=== PATIENT | male | born 1970 | race Caucasian/White ===

== ENCOUNTER 2020-09-16 09:36 | Day surgery (SDC) | payer OTHER, SELFPAY ==
[2020-09-10 11:08] VITALS: BMI 26.2
--- NOTE | 2020-09-13 13:04 | HO.ANESPROP2 ---
Documented by User: Veronika Leblanc 09/13/20 13:04 HPI - Anesthesia Eval Consult details Narrative: 49yo M for Upper Endoscopy and Colonoscopy [facility] Past Medical History Medical History Bipolar 1 disorder Hx of opioid abuse Surgical History Surgical History History of ankle surgery Social History Social History Use of substances other than those prescribed or required for medical reasons: Yes Substance Use Type Other:: on suboxone at present time Advance Directives Information Provided: No Meds Allergies Allergy/AdvReac Type Severity Reaction Status Date / Time No Known Allergies Allergy Verified 09/10/20 11:12 [No Known Allergies*] Home Medications Medication Instructions Recorded Confirmed Type alprazolam [Xanax] 0.5 mg PO TID 09/10/20 09/10/20 History buprenorphine-naloxone [Suboxone] 2 film BUCCAL DAILY 09/10/20 09/10/20 History dextroamphetamine-amphetamine 10 mg PO DAILY 09/10/20 09/10/20 History [Adderall] diclofenac sodium 75 mg PO BID PRN 09/10/20 09/10/20 History dicyclomine 20 mg PO TID 09/10/20 09/10/20 History docusate sodium 100 mg PO BID 09/10/20 09/10/20 History gabapentin 600 mg PO TID 09/10/20 09/10/20 History sildenafil [Viagra] 50 mg PO DAILY 09/10/20 09/10/20 History Exam Exam Date and Time: September 13, 2020 1304 Height,Weight and Vital Signs: Height 6 ft Weight 87.543 kg Pertinent Lab Results Pertinent Lab Results: Laboratory Tests 04/12/20 15:40 WBC 10.5 Hgb 13.1 L Hct 37.6 L Plt Count 214 Assessment and Plan Assessment Anesthesia Assessment: Chart Reviewed Documented by User: Laura Saleh 09/16/20 11:15 PMFSH Past Medical History Medical History Bipolar 1 disorder Hx of opioid abuse Surgical History Surgical History History of ankle surgery Social History Social History Use of substances other than those prescribed or required for medical reasons: Yes Substance Use Type Other:: on suboxone at present time Advance Directives Information Provided: No Meds Allergies Allergy/AdvReac Type Severity Reaction Status Date / Time No Known Allergies Allergy Verified 09/10/20 11:12 [No Known Allergies*] Home Medications Medication Instructions Recorded Confirmed Type alprazolam [Xanax] 0.5 mg PO TID 09/10/20 09/10/20 History buprenorphine-naloxone [Suboxone] 2 film BUCCAL DAILY 09/10/20 09/10/20 History dextroamphetamine-amphetamine 10 mg PO DAILY 09/10/20 09/10/20 History [Adderall] diclofenac sodium 75 mg PO BID PRN 09/10/20 09/10/20 History dicyclomine 20 mg PO TID 09/10/20 09/10/20 History docusate sodium 100 mg PO BID 09/10/20 09/10/20 History gabapentin 600 mg PO TID 09/10/20 09/10/20 History sildenafil [Viagra] 50 mg PO DAILY 09/10/20 09/10/20 History Exam Airway Mallampati Class: II TM Dist: >3cm Neck ROM: Full
[2020-09-16 10:17] VITALS: BP 129/72; PULSE 67; RESP 18; TEMP 36.7; O2SAT 96
[2020-09-16] MEDS: Lactated Ringers 1,000 ML 100 ML IVCONT (10:31)
--- NOTE | 2020-09-16 11:10 | MHC.SHP ---
Pre-Procedural Eval Section B Chief Complaint: SCREENING Details of Present Illness: bloating and gas, remote hx of cirrhosis per patient, Relevant Social History: None Present Medications: see Short Stay Collaborative assessment Medical History: Significant History (ADHD, depression, possible cirrhosis, ex alcohol absue) History of Previous Operations: No relevant previous surgery Allergies: Allergies Allergy/AdvReac Type Severity Reaction Status Date / Time No Known Allergies Allergy Verified 09/10/20 11:12 [No Known Allergies*] Review of Systems Sugical H&P ROS: Negative: Constitution, Cardiovascular, Respiratory, Neurological, Psychiatric, Hem-Onc, Allergic/Immunologic, Gastrointestinal, Genitourinary, Musculoskeletal, Integumentary, Endocrine and Eyes/Ears/Nose/Throat Exam Surgical H&P Exam: Normal: HEENT, Normal: Heart, Normal: Lungs, Normal: Extremities, Normal: Abdomen, Normal: Skin and Normal: Neurological Plan Diagnosis/Plan: Unchanged Patient has been examined and remains a candidate for the planned procedure
--- NOTE | 2020-09-16 11:12 | PM.OP ---
Brief Operative Note Date of procedure: 09/16/20 Pre-op diagnosis: bloating, hx of cirrhosis, colon screen Post-op diagnosis: same Surgeon: Lory Rodríguez MD Anesthesia: MAC Estimated blood loss (mL): 0 Condition: stable Disposition: PACU
--- NOTE | 2020-09-16 11:13 | P.OP_ITS ---
Operative Note Operative Note Narrative: Operative Information Procedure Description: EGD, Colonoscopy FLEXIBLE TRANSORAL UPPER GASTROINTESTINAL ENDOSCOPY AND COLONOSCOPY PROCEDURE NOTE UPPER ENDOSCOPY Consent: Indications for the procedure and potential complications of bleeding, perforation, reaction to medications and missed diagnosis were discussed with the patient and informed consent was obtained. Instrument: Olympus GIF H 190 J mid size upper endoscope Monitoring: Vital signs and clinical assessment, continuous EKG monitoring, Pulse oximetry, Carbon Dioxide monitoring and blood pressure monitoring were done throughout the procedure. Procedure: The patient was placed in the left lateral decubitis position and pre-procedure medications were administered and a bite block was placed. The endoscope was inserted into the mouth and advanced under direct vision to the third part of duodenum. A careful inspection was made as the upper endoscope was withdrawn including a retroflexed examination of the proximal stomach; Findings and interventions are described below. Findings: Larynx:normal Esophagus: GE junction at 42 cm, diaphragm hiatus at 42 cm, normal mucosa Stomach: Mild streaky gastric erythema. Biopsies were obtained. Grade 2 flap valve on retroflexed examination of the cardia. No gastric peristalsis seen Duodenum: Normal bulb and descending duodenum, bx taken, no peristalsis noted Intervention: Biopsies as noted above COLONOSCOPY Instrument: Olympus variable stiffness pediatric scope 190L Colonoscopy Monitoring: Vital signs and clinical assessment, continuous EKG monitoring, Pulse oximetry, Carbon Dioxide monitoring and blood pressure monitoring were done throughout the procedure. Colon withdrawal time was 9 minutes. Procedure: The patient was placed in the left lateral decubitis position and pre-procedure medications were administered. After a digital rectal examination of the ano-rectum, the video colonoscope was inserted into the rectum and advanced through the colon to the cecum/TI. The colonoscope was slowly withdrawn in a retrograde panoramic fashion and the colon mucosa was carefully examined including a retroflexed view of the rectum. Findings and interventions are described below. Procedure Difficulty: Findings: RECTAL exam--normal, no enlarged prostate felt Terminal Ileum-normal Cecum:normal Ascending Colon: normal Transverse Colon -normal Descending Colon:normal Sigmoid Colon: normal, 8-9 mm sessile polyp removed with cold snare Rectum: Retroflexion with small internal hemorrhoids, grade I Anorectum - normal Colon preparation: [place] Bowel Preparation Scale Right colon; 3 Transverse colon: 3 Left colon; 2 (0 = Unprepared colon segment with mucosa not seen due to solid stool that cannot be cleared. 1 = Portion of mucosa of the colon segment seen, but other areas of the colon segment not well seen due to staining, residual stool and/or opaque liquid. 2 = Minor amount of residual staining, small fragments of stool and/or opaque liquid, but mucosa of colon segment seen well. 3 = Entire mucosa of colon segment seen well with no residual staining, small fragments of stool or opaque liquid) Impression and Post Procedure Diagnosis: Endoscopy Findings: gastritis possible gastroparesis and small bowel dysmotility Colonoscopy Findings: internal hemorrhoids polyp Plan: Await Pathology results Repeat Colonoscopy in 7-10 years pending path or earlier if clinically indicated High fiber diet leaflet avoid straining at stool, epsom salts and sitz bath, anusol supps or cream GASTRIC EMPTYING STUDY as outpatient, could have gastroparesis and dysmotility 2/2 suboxone Above findings were reviewed with the patient and relevant handouts were provided if indicated.
[2020-09-16 12:04] VITALS: BP 90/56; PULSE 61; RESP 15; TEMP 36.5; O2SAT 98
[2020-09-16 12:18] VITALS: BP 103/70; PULSE 79; RESP 18; O2SAT 96
[2020-09-16 12:32] VITALS: BP 104/66; PULSE 59; RESP 18; TEMP 36.1; O2SAT 95
--- NOTE | 2020-09-16 12:52 | HO.POSTANES ---
Post Anesthesia Evaluation Post Anesthesia Evaluation Vital Signs: Vital Signs Temp Pulse Resp BP Pulse Ox 09/16/20 12:32 96.9 F 59 18 104/66 95 09/16/20 12:18 79 18 103/70 96 09/16/20 12:04 97.7 F 61 15 90/56 L 98 09/16/20 10:17 98.1 F 67 18 129/72 96 Anesthesia: Monitored Mental Status: Awake Pain Control: Satisfactory Nausea/Vomiting: None Hydration: Adequate Anesthesia-Related Issues: No Anes. Related Issues
== END 2020-09-16 23:59 | disposition home or self-care (01) ==
PROVIDERS: Visit Provider Internal Medicine Gastroenterology
PROC: (CPT 45385; principal; 2020-09-16 10:30)
DX: Z12.11 Encounter for screening for malignant neoplasm of colon (principal); D12.5 Benign neoplasm of sigmoid colon; K64.0 First degree hemorrhoids; K29.50 Unspecified chronic gastritis without bleeding; K59.9 Functional intestinal disorder, unspecified; K44.9 Diaphragmatic hernia without obstruction or gangrene; F31.9 Bipolar disorder, unspecified; F90.9 Attention-deficit hyperactivity disorder, unspecified type; R14.0 Abdominal distension (gaseous); F11.10 Opioid abuse, uncomplicated; Z79.899 Other long term (current) drug therapy
CPT/HCPCS: 45385; 43239; 88305; 88342; J2250

== ENCOUNTER → 2020-12-16 09:05 | Outpatient (BNVA) | payer OTHER, SELFPAY | PROVIDERS: Visit Provider Internal Medicine Gastroenterology | DX: Z13.89 Encounter for screening for other disorder (principal) | CPT/HCPCS: 99212 ==

== ENCOUNTER 2021-03-17 07:02 | Emergency (ER) | payer OTHER, SELFPAY ==
[2021-03-17] VITALS (8 sets, daily range): BP systolic 0–172; BP diastolic 0–83; PULSE 0–114; RESP 0–20; TEMP -17.7–37.5; O2SAT 96; BMI 25.0
--- NOTE | 2021-03-17 07:14 | ED_ITS ---
HPI - Psych General Chief Complaint: Psychiatric Symptoms Stated Complaint: Crisis Time Seen by Provider: 03/17/21 07:14 Source: patient, EMS and police Mode of arrival: EMS Limitations: no limitations History of Present Illness HPI Narrative: This is a 50-year-old male came in by ambulance and police custody and Section 12 for evaluation of suicidal gesturing. This is a 50-year-old male who is cocaine/fentanyl abuser, patient stated that he is in fear of withdrawal from cocaine and fentanyl he did not using for the last 2 days, patient was speaking with [facility] and who were concerned and sent the police home found a note has some suicidal ideation ?I do not want to be on this planet any more ?. Patient otherwise decline headache, chest pain, abdominal pain. Related Data Home Medications Medication Instructions Recorded Confirmed alprazolam [Xanax] 0.5 mg PO TID 09/10/20 09/10/20 buprenorphine-naloxone [Suboxone] 2 film BUCCAL DAILY 09/10/20 09/10/20 dextroamphetamine-amphetamine 10 mg PO DAILY 09/10/20 09/10/20 [Adderall] diclofenac sodium 75 mg PO BID PRN 09/10/20 09/10/20 dicyclomine 20 mg PO TID 09/10/20 09/10/20 docusate sodium 100 mg PO BID 09/10/20 09/10/20 gabapentin 600 mg PO TID 09/10/20 09/10/20 sildenafil [Viagra] 50 mg PO DAILY 09/10/20 09/10/20 Allergies Allergy/AdvReac Type Severity Reaction Status Date / Time No Known Allergies Allergy Verified 12/16/20 09:06 [No Known Allergies*] Review of Systems Review of Systems: All other systems are reviewed and are negative Constitutional: Reports as per HPI and Reports no additional constitutional complaints Eyes: Reports as per HPI and Reports no additional eye complaints Reports system reviewed and no additional complaints, except as documented Cardiovascular: Reports as per HPI and Reports no additional cardiovascular complaints Respiratory: Reports as per HPI and Reports no additional respiratory complaints Gastrointestinal: Reports as per HPI and Reports no additional gastrointestinal complaints Genitourinary: Reports no additional female genitourinary complaints Musculoskeletal: Reports no additional musculoskeletal complaints Skin/Breast: Reports system reviewed and no additional complaints, except as docu Psychiatric: Reports no additional psychiatric complaints Endocrine: Reports no additional endocrine complaints Hematologic/Lymphatic: Reports no additional hematologic/lymphatic complaints Allergic/Immunologic: Reports no additional allergic/immunologic complaints Reports system reviewed and no additional complaints, except as documented and Reports Abnormal speech present [facility] Past Medical History Medical History Bipolar 1 disorder Hx of opioid abuse Surgical History History of ankle surgery History of colonoscopy History of esophagogastroduodenoscopy (EGD) Social History Social History Household Members: Family Alcohol intake: current Alcohol intake frequency: 3 or more drinks per day Tobacco Type: Cigarette Cigarettes Per Day: 10 Physical Exam Vital Signs: Vital Signs: Last Vital Signs Temp 0 F L 03/17/21 07:09 Pulse 0 L 03/17/21 07:09 Resp 0 L 03/17/21 07:09 BP 0/0 L 03/17/21 07:09 Body Mass Index 25.0 Vital signs have been reviewed as appeared to be correct. Blood pressure normal. Heart rate normal. Respiration rate normal. Temperature normal. Oxygen saturation normal. Appearance: Alert. Oriented X3. No acute distress. Head: Normal external exam. Normocephalic. Atraumatic. No Flynn signs noted. No raccoon eyes noted Eyes: PERRLA. EOMI. Conjunctiva and sclera normal. Eyelids normal. ENT: TM's Normal. Pharynx normal. Uvula midline. Moist mucous membranes. No trismus noted. No drooling noted. No muffled voice noted. Neck: Normal inspection. Neck supple. FROM. No adenopathy. Thyroid Normal. No meningeal signs. No neck mass noted. CVS: Normal heart rate and rhythm. Heart sound normal. No murmurs noted. Pulses normal throughout. Respiratory: No respiratory distress. Painless inspiration. Breath sounds normal. No wheezes/rales/rhonchi noted. Chest nontender. No accessory muscle usage noted or decreased air movement noted. Abdomen: Soft and nontender. Bowel sounds normal in all 4 quadrants. No distention noted. No organomegaly noted. No visible injury noted. Back: No CVA tenderness. Full range of motion noted. Skin: Skin warm and dry. Normal skin color. Normal skin turgor. No rashes/lesions/lacerations noted. Extremities: No lower extremity edema. Extremities exhibit normal range of motion. Extremities nontender. Neuro: Oriented X 3. No motor deficit. No sensory deficit. Reflexes normal. Patient Appearance: Appropriate Patient Orientation: Person, Place, Time and Situation Level of Consciousness: Awake, Appropriate and Alert Patient Behavior: Talkative, Cooperative. Mood Description: Depressed. Affect Description: Flat. Patient Cognition Impaired: No Ability to Follow Directions: Good Speech Pattern: None interrupted Memory Description: Intact Hallucinations: Not present. Delusions: Not Present Thought Process: Logical. Thought Content: Unremarkable Depressive Symptoms: Increased anxiety. Judgement: Poor. Course Reevaluation(s) Reevaluation #1: Physician observation started at 7:10 am . Patient placed in physician observation because the patient needed more time for BHN and evaluation and placement placement patient's vital sign were stable, patient is alert and oriented , neuro exam unchanged, unremarkable rest of physical exam. Time: 07:19 Discharge Plan Discharge Clinical Impression: Depression, Bipolar disorder, Active substance abuse Prescriptions: No Action gabapentin 600 mg Tablet 600 mg PO TID RF: 0 sildenafil [Viagra] 50 mg Tablet 50 mg PO DAILY RF: 0 dextroamphetamine-amphetamine [Adderall] 10 mg Tablet 10 mg PO DAILY RF: 0 alprazolam [Xanax] 0.5 mg Tablet 0.5 mg PO TID RF: 0 dicyclomine 20 mg Tablet 20 mg PO TID RF: 0 docusate sodium 100 mg Capsule 100 mg PO BID RF: 0 diclofenac sodium 75 mg Tablet,Delayed Release (Dr/Ec) 75 mg PO BID PRN (Reason: Pain) RF: 0 buprenorphine-naloxone [Suboxone] 8-2 mg Film 2 film BUCCAL DAILY RF: 0
[2021-03-17 09:29] LABS: Amphetamine Screen Urine Not Detected (Not Detect); Barbiturates, Urine Not Detected (Not Detect); Benzodiazepines Screen Urine Not Detected (Not Detect); Cannabinoid Screen Urine Not Detected (Not Detect); Cocaine Screen Urine POSITIVE (Not Detect); Opiate Screen Urine Not Detected (Not Detect); Phencyclidine Screen Urine Not Detected (Not Detect)
[2021-03-17] MEDS: LORazepam 1 MG TABLET 2 MG PO ×2 (09:49→17:43)
--- NOTE | 2021-03-17 09:51 | PC.NURSE ---
Pt awake, alert, oriented x3. Affect anxious, pt transferred from main. Pt oriented to unit and to crisis process. Pt reports he last used heroin prior to arrival, denies any regular use of etoh.
--- NOTE | 2021-03-17 10:34 | PC.NURSE ---
Pt medicated as ordered, BHN in to evaluate.
--- NOTE | 2021-03-17 11:33 | PC.NURSE ---
BHN in to evaluate pt
[2021-03-17 15:08] LABS: MANUAL DIFF FLAG NO
[2021-03-17 15:09] LABS: Basophils Percent Auto 0.5 % (0-2); Eosinophils Absolute Auto 0.2 X10*3/uL (0.0-0.4); Eosinophils Percent Auto 2.9 % (0-4); Hematocrit 37.4 % (42-52); Hemoglobin 12.5 g/dl (14.0-18.0); Imm Gran Abs Auto 0.03 X10*3/uL (0.00-0.03); Imm Gran Pct Auto 0.5 % (0.0-0.4); Lymphocytes Absolute Auto 1.5 X10*3/uL (1.2-4.9); Lymphocytes Percent Auto 23.8 % (20-40); Mean Corpuscular HGB Conc 33.4 g/dl (31.0-36.0); Mean Corpuscular Hemoglobin 31.3 pg (27.0-33.0); Mean Corpuscular Volume 93.7 fL (80-98); Mean Platelet Volume 9.7 fL (9.4-12.4); Monocytes Absolute Auto 0.6 X10*3/uL (0.1-1.2); Neutrophils Absolute Auto 4.1 X10*3/uL (2.0-8.3); Neutrophils Percent Auto 63.3 % (45-73); Platelet Count 204 X10*3/uL (160-400); Red Blood Count 3.99 X10*6/uL (4.60-5.80); White Blood Count 6.5 X10*3/uL (4.8-10.8)
[2021-03-17 15:16] LABS: COVID-19 Test Negative (Negative)
[2021-03-17 15:33] LABS: Ethanol < 10 mg/dL
[2021-03-17 15:36] LABS: Alanine Aminotransferase 12 U/L (0-40); Albumin Level 4.3 g/dL (3.5-5.0); Alkaline Phosphatase 63 U/L (39-117); Anion Gap 12 (12-20); Aspartate Amino Transferase 18 U/L (5-37); Bilirubin Total 0.9 mg/dL (0.0-1.0); Blood Urea Nitrogen 5 mg/dL (9-16); Carbon Dioxide 28 mmol/L (22-29); Chloride 105 mmol/L (96-108); Creatinine Clr Calc Pharmacy 105.6; Estimated Glomerular Filt Rate > 60; Glucose Random 101 mg/dL (60-115); Potassium 3.6 mmol/L (3.3-5.1); Sodium 141 mmol/L (135-145); Total Protein 6.8 g/dL (6.5-8.0)
--- NOTE | 2021-03-17 17:38 | PC.NURSE ---
N June aware of COWS
[2021-03-17] MEDS: cloNIDine HCL 0.2 MG TABLET PO (17:43)
--- NOTE | 2021-03-17 20:18 | PC.NURSE ---
Patient in bed appears sleeping, no distress observed/reported, will continue to monitor.
[2021-03-17] MEDS: Gabapentin 600 MG TABLET PO (21:04)
[2021-03-18] MEDS: ALPRAZolam 0.5 MG TABLET 2 MG PO ×2 (00:37→13:13)
[2021-03-18 00:38] VITALS: BP 138/74; PULSE 71; RESP 18; TEMP 36.7; O2SAT 98
[2021-03-18 05:08] VITALS: BP 132/76; PULSE 59; RESP 96; TEMP 36.8; O2SAT 96
[2021-03-18 05:15] VITALS: BP 130/76; PULSE 59
[2021-03-18] MEDS: cloNIDine HCL 0.1 MG TABLET PO (05:15)
--- NOTE | 2021-03-18 05:17 | PC.NURSE ---
Patient was diaphoretic, COW assessed scored 6, provider notified/ordered Clonidine 0.1 mg/administered as ordered, patient compliant will continue to monitor.
[2021-03-18] MEDS: Gabapentin 600 MG TABLET PO ×2 (08:21→15:10)
[2021-03-18 08:24] VITALS: BP 118/77; PULSE 70; RESP 16; TEMP 36.4; O2SAT 97
== END 2021-03-18 15:21 ==
PROVIDERS: Emergency Provider Emergency Medicine
DX: R45.851 Suicidal ideations (principal); F32.9 Major depressive disorder, single episode, unspecified; F14.10 Cocaine abuse, uncomplicated; F11.10 Opioid abuse, uncomplicated; F17.200 Nicotine dependence, unspecified, uncomplicated; Z20.822 Contact with and (suspected) exposure to COVID-19; F31.9 Bipolar disorder, unspecified; Z79.899 Other long term (current) drug therapy
CPT/HCPCS: 36415; 80053; 80307; 80320; 85025; 87635; 99285

== ENCOUNTER → 2021-04-18 11:46 | Outpatient (BNVA) | payer OTHER, SELFPAY | PROVIDERS: Visit Provider Internal Medicine Gastroenterology | DX: K59.01 Slow transit constipation (principal) | CPT/HCPCS: 99212 ==

== ENCOUNTER 2021-06-19 12:29 | Outpatient (REF) | payer OTHER, SELFPAY ==
--- NOTE | ~2021-06-19 | XR_ITS ---
EXAMINATION: XR LUMBAR SPINE XR PELVIS CLINICAL INFORMATION: Back pain. COMPARISON: None TECHNIQUE: Lumbar spine is imaged in 3 views. The pelvis is imaged in single AP view. FINDINGS: There are 5 [id number] lumbar vertebrae with normal vertebral height and normal lumbar lordosis. There may be a borderline spina bifida occulta at S1. There is no vertebral compression, spondylolisthesis, disc narrowing, or destructive process. No endplate sclerosis or erosive change. There are mild facet degenerative changes lumbosacral junction. The bony pelvis appears intact with no destructive process. The SI joints show no diastasis, ankylosis, or erosive change. No subchondral sclerosis. Pubis unremarkable. There is mild narrowing bilateral superior hip joints. XR/XR pelvis 1-2V IMPRESSION: 1. No lumbar vertebral compression, spondylolisthesis, or disc narrowing. 2. Mild facet degeneration lumbosacral junction. Probable spina bifida occulta S1. 3. Pelvis and SI joints are unremarkable. 4. Mild narrowing superior hip joints.
--- NOTE | ~2021-06-19 | XR_ITS ---
EXAMINATION: XR LUMBAR SPINE XR PELVIS CLINICAL INFORMATION: Back pain. COMPARISON: None TECHNIQUE: Lumbar spine is imaged in 3 views. The pelvis is imaged in single AP view. FINDINGS: There are 5 [id number] lumbar vertebrae with normal vertebral height and normal lumbar lordosis. There may be a borderline spina bifida occulta at S1. There is no vertebral compression, spondylolisthesis, disc narrowing, or destructive process. No endplate sclerosis or erosive change. There are mild facet degenerative changes lumbosacral junction. The bony pelvis appears intact with no destructive process. The SI joints show no diastasis, ankylosis, or erosive change. No subchondral sclerosis. Pubis unremarkable. There is mild narrowing bilateral superior hip joints. XR/XR lumbar spine 2-3V IMPRESSION: 1. No lumbar vertebral compression, spondylolisthesis, or disc narrowing. 2. Mild facet degeneration lumbosacral junction. Probable spina bifida occulta S1. 3. Pelvis and SI joints are unremarkable. 4. Mild narrowing superior hip joints.
[2021-06-19 13:38] LABS: MANUAL DIFF FLAG NO
[2021-06-19 13:48] LABS: Basophils Percent Auto 0.4 % (0-2); Eosinophils Absolute Auto 0.6 X10*3/uL (0.0-0.4); Eosinophils Percent Auto 5.6 % (0-4); Hematocrit 38.8 % (42-52); Hemoglobin 12.8 g/dl (14.0-18.0); Imm Gran Abs Auto 0.11 X10*3/uL (0.00-0.03); Imm Gran Pct Auto 1.1 % (0.0-0.4); Lymphocytes Absolute Auto 2.7 X10*3/uL (1.2-4.9); Lymphocytes Percent Auto 25.7 % (20-40); Mean Corpuscular Hemoglobin 30.5 pg (27.0-33.0); Mean Corpuscular Volume 92.6 fL (80-98); Mean Platelet Volume 10.3 fL (9.4-12.4); Monocytes Absolute Auto 0.9 X10*3/uL (0.1-1.2); Monocytes Percent Auto 8.2 % (2-11); Neutrophils Absolute Auto 6.1 X10*3/uL (2.0-8.3); Platelet Count 318 X10*3/uL (160-400); Red Blood Count 4.19 X10*6/uL (4.60-5.80); Red Cell Distribution Width 12.6 % (11.0-16.0); White Blood Count 10.4 X10*3/uL (4.8-10.8)
[2021-06-19 14:08] LABS: Alanine Aminotransferase 22 U/L (0-40); Albumin Level 4.3 g/dL (3.5-5.0); Alkaline Phosphatase 60 U/L (39-117); Anion Gap 11 (12-20); Aspartate Amino Transferase 14 U/L (5-37); Bilirubin Total 0.5 mg/dL (0.0-1.0); Blood Urea Nitrogen 7 mg/dL (9-16); C Reactive Protein 0.13 mg/dL (< or = 0.50); Calcium 9.3 mg/dL (8.4-10.2); Carbon Dioxide 28 mmol/L (22-29); Chloride 105 mmol/L (96-108); Estimated Glomerular Filt Rate > 60; Glucose Random 96 mg/dL (60-115); Rheumatoid Factor < 15.0 IU/mL (<15.0); Sodium 140 mmol/L (135-145); Total Protein 6.6 g/dL (6.5-8.0)
[2021-06-19 14:34] LABS: Erythrocyte Sedimentation Rate 8 MM/HR (0-15)
[2021-06-25 11:26] LABS: Cyclic Citrullinated Peptide <16 UNITS
== END 2021-06-19 12:30 | disposition home or self-care (01) ==
LOC: HO.XRAY 12:29
PROVIDERS: Visit Provider Student in an Organized Health Care Education/Training Program
DX: M54.9 Dorsalgia, unspecified (principal)
CPT/HCPCS: 36415; 72100; 72170; 80053; 85025; 85652; 86140; 86200; 86431; 99202

== ENCOUNTER → 2021-07-08 12:55 | Outpatient (BNVA) | payer OTHER, SELFPAY | PROVIDERS: PCP Internal Medicine; Visit Provider Student in an Organized Health Care Education/Training Program | CPT/HCPCS: Q3014 ==

== ENCOUNTER 2021-07-11 12:32 | Outpatient (REF) | payer OTHER, SELFPAY ==
--- NOTE | ~2021-07-11 | XR_ITS ---
EXAMINATION: LEFT RIBS AND LEFT SHOULDER. CLINICAL INFORMATION: Pleurodynia and left shoulder pain. COMPARISON: None TECHNIQUE: Three-view left shoulder and PA chest with 3 views of the left ribs. FINDINGS: 3 views of the left shoulder demonstrate a comminuted distal left clavicle fracture without significant displacement of major fracture fragments and with a smaller fragment seen superior to the clavicle. There is no widening of the coracoclavicular space is identified. There is soft tissue swelling seen overlying the fracture site. There is no evidence of disruption of the acromioclavicular joint. No acute fracture or dislocation of the left shoulder seen. There is no evidence of acute parenchymal disease, pneumothorax, or pleural effusion. Heart normal size. No evidence of pulmonary edema. No definite pleural abnormality is appreciated with the lungs being hyperinflated. XR/XR ribs LT min 3V w CXR1V IMPRESSION: No acute parenchymal disease within the chest. Comminuted fracture of the distal left clavicle without definite disruption of the coracoclavicular ligament or acromioclavicular joint.
--- NOTE | ~2021-07-11 | XR_ITS ---
EXAMINATION: LEFT RIBS AND LEFT SHOULDER. CLINICAL INFORMATION: Pleurodynia and left shoulder pain. COMPARISON: None TECHNIQUE: Three-view left shoulder and PA chest with 3 views of the left ribs. FINDINGS: 3 views of the left shoulder demonstrate a comminuted distal left clavicle fracture without significant displacement of major fracture fragments and with a smaller fragment seen superior to the clavicle. There is no widening of the coracoclavicular space is identified. There is soft tissue swelling seen overlying the fracture site. There is no evidence of disruption of the acromioclavicular joint. No acute fracture or dislocation of the left shoulder seen. There is no evidence of acute parenchymal disease, pneumothorax, or pleural effusion. Heart normal size. No evidence of pulmonary edema. No definite pleural abnormality is appreciated with the lungs being hyperinflated. XR/XR shoulder LT min 2V IMPRESSION: No acute parenchymal disease within the chest. Comminuted fracture of the distal left clavicle without definite disruption of the coracoclavicular ligament or acromioclavicular joint.
== END 2021-07-11 12:33 | disposition home or self-care (01) ==
LOC: HO.HMGCX 12:32
PROVIDERS: Visit Provider Hospitalist
DX: Z13.89 Encounter for screening for other disorder (principal)
CPT/HCPCS: 71101; 73030

== ENCOUNTER → 2021-07-25 11:21 | Outpatient (BNVA) | payer OTHER, SELFPAY | PROVIDERS: PCP Internal Medicine; Visit Provider Internal Medicine Gastroenterology | CPT/HCPCS: 99212 ==

== ENCOUNTER → 2021-11-25 11:49 | Outpatient (BNVA) | payer OTHER, SELFPAY | PROVIDERS: PCP Internal Medicine; Visit Provider Internal Medicine Gastroenterology | CPT/HCPCS: Q3014 ==

== ENCOUNTER 2022-01-07 10:16 | Outpatient (REF) | payer OTHER, SELFPAY ==
--- NOTE | 2022-01-07 10:22 | EMG_ITS ---
This is a man with history of chronic alcohol abuse, who has been dry for about 12 years, but has persistent numbness for more than 15 years in his feet as well as poor balance that is slowly getting worse. PHYSICAL EXAMINATION: On examination, he has slightly ataxic gait. Positive reflexes in the lower extremities and distal atrophy of the EDB, left more than right. There is blunting of sensory modalities distally as well. IMPRESSION: Peripheral neuropathy. 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 EMG of the right L4-S1 innervated muscles shows distal chronic denervative changes of neuropathy. MD SANDEEP Jovel/ABIGAIL / [id number]
== END 2022-01-07 10:17 | disposition home or self-care (01) ==
LOC: HO.NEURO 10:16
PROVIDERS: Absent Provider Internal Medicine; PCP Internal Medicine; Visit Provider Internal Medicine
DX: R20.0 Anesthesia of skin (principal)
CPT/HCPCS: 95885; 95911

== ENCOUNTER 2023-05-17 13:57 | Outpatient (REF) | payer OTHER, SELFPAY ==
--- NOTE | ~2023-05-17 | XR_ITS ---
EXAMINATION: XR ABDOMEN KUB CLINICAL INDICATION: Slow transit constipation. COMPARISON: Left ribs 07/11/2021. TECHNIQUE: 3 AP views of the abdomen. FINDINGS: 6 mm linear radiodensity overlying the right hemidiaphragm was not appreciated on the prior exam of the ribs of indeterminate etiology, possibly a post surgical device or foreign body external or internal to the patient. Correlation with clinical exam recommended A few prominent air-filled loops of small bowel. No abnormally dilated loops of large bowel consistent to suggest obstruction. Moderate amount of stool in the colon. Pelvic calcifications are likely vascular. Moderate degenerative changes bilateral hips. Degenerative changes in the imaged thoracolumbar spine. XR/XR KUB IMPRESSION: 1. Few prominent air-filled loops of small bowel. No abnormally dilated loops of large bowel consistent to suggest obstruction. Moderate amount of stool in the colon. 2. A 6 mm linear radiodensity overlying the right hemidiaphragm was not appreciated on the prior exam of the ribs of indeterminate etiology, possibly a post surgical device or foreign body external or internal to the patient. Correlation with clinical exam recommended
[2023-05-17 20:04] LABS: Alanine Aminotransferase 77 U/L (0-40); Albumin Level 4.3 g/dL (3.5-5.0); Alkaline Phosphatase 84 U/L (39-117); Anion Gap 15 (12-20); Aspartate Amino Transferase 82 U/L (5-37); Bilirubin Total 0.8 mg/dL (0.0-1.0); Blood Urea Nitrogen 10 mg/dL (9-16); Calcium 9.1 mg/dL (8.4-10.2); Carbon Dioxide 24 mmol/L (22-29); Chloride 106 mmol/L (96-108); Estimated Glomerular Filt Rate > 60; Glucose Random 96 mg/dL (60-115); Potassium 3.9 mmol/L (3.3-5.1); Sodium 141 mmol/L (135-145); Total Protein 7.2 g/dL (6.5-8.0)
[2023-05-17 20:21] LABS: Ferritin 195 ng/mL (20-250); TSH reflex Free T4 1.93 uIU/mL (0.32-4.0)
[2023-05-27 22:58] LABS: Transglutaminase Ab IgG <1.0 U/mL
== END 2023-05-17 13:58 | disposition home or self-care (01) ==
LOC: HO.LAB 13:57
PROVIDERS: PCP Internal Medicine; Visit Provider Internal Medicine Gastroenterology
DX: K31.84 Gastroparesis (principal); K59.01 Slow transit constipation; K75.81 Nonalcoholic steatohepatitis (NASH); R41.89 Other symptoms and signs involving cognitive functions and awareness; E83.52 Hypercalcemia; R10.33 Periumbilical pain; R19.7 Diarrhea, unspecified
CPT/HCPCS: 36415; 74018; 80053; 82180; 82306; 82330; 82607; 82728; 82746; 83088; 83520; 84443; 84590; 84630; 85025; 86364; 99212

== ENCOUNTER 2023-07-07 14:23 | Outpatient (REF) | payer OTHER, SELFPAY ==
--- NOTE | ~2023-07-07 | MR_ITS ---
EXAMINATION: MRI FOOT WITHOUT AND WITH CONTRAST, RIGHT CLINICAL INFORMATION: Nonhealing wound. Evaluate for osteomyelitis COMPARISON: Radiographs 01/13/2023 TECHNIQUE: MRI without and with intravenous administration of 10 mL of Gadavist is performed on the right foot. FINDINGS: There is a soft tissue ulceration at the plantar aspect of the great toe with underlying edema/enhancement compatible with cellulitis. No abscess. There is minimal marrow edema/enhancement of the 1st distal phalanx. Fatty marrow signal is preserved and this is most likely reactive although the possibility of very early or mild osteomyelitis is difficult to completely. There is severe osteoarthritis of the 2nd MTP joint with chronic deformity of the metatarsal head, osteophytes, and a chronic dorsal ossification which may be the result of a remote fracture or Freiberg's infraction. Soft tissue pressure reaction plantar to the 5th metatarsal head. Moderate fatty atrophy of the intrinsic muscles of the foot. Visualized flexor and extensor tendons appear intact. There is mild enhancing tenosynovitis of the flexor hallucis longus tendon which may be infected. MR/MR foot RT wo/w con IMPRESSION: 1. Soft tissue ulceration at the plantar aspect of the great toe with underlying cellulitis. No abscess. Minimal marrow edema/enhancement of the 1st distal phalanx is most likely reactive although very early or mild osteomyelitis is difficult to completely exclude. 2. Mild flexor hallucis longus tenosynovitis which may be infected. 3. 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
[2023-07-07] MEDS: gadobutroL 10 ML VIAL IVPUSH (15:19)
== END 2023-07-07 14:24 | disposition home or self-care (01) ==
LOC: HO.MRI 14:23
PROVIDERS: PCP Internal Medicine; Visit Provider Physician Assistant
DX: L97.512 Non-pressure chronic ulcer of other part of right foot with fat layer exposed (principal); G60.3 Idiopathic progressive neuropathy
CPT/HCPCS: 73720; A9585

== ENCOUNTER 2023-08-30 14:36 | Outpatient (AMB) | payer OTHER, SELFPAY ==
--- NOTE | 2023-08-30 14:42 | MHC.OFFVIS ---
Intake Vital Signs 08/30/23 14:44 Height 6 ft Weight 233 lb 11.04 oz BMI 31.7 BP 140/98 H Blood Pressure Location Lt brachial Position Sitting Pulse 94 Intake Visit Reasons: 3 month follow up Intake Note: David presents in the office as a 3 month follow up. CC: States Rifaximin did not help. He feels like he has bloating and inflammation in his stomach. More constipation but he does get diarrhea at times. Allergies No Known Allergies [No Known Allergies*] Allergy (Verified 08/30/23 14:50) HPI 3 month follow up HPI Details 52-year-old male being seen for f/u of possible IBS-C vs narcotic related constipation RECAP: index visit 03/14/2020 ? He has been with lifelong GI issues ? he had bene dx with liver cirrhosis, due to alcohol but stopped long time back ? he has issues with bloating and distention, feels like ? denies abdo cramps or pain ? he has mild constipation, goes to toilet once daily ? no blood in stool ? denies pushing or straining at stool ? he uses lactulose v occasionally, tried dicyclomine ? has back stiffness ? has depression and ADHD had EMS and ECT ? he takes suboxone daily ? lactulose taken rarely ?had colonoscopy, EGD >10 yrs ago he tried ABx in case of SIBO--didn;t help no relief with gas-x I gave him trial on linaclotide starting with 72 mcg--was doing well initially ? * ? [facility]: 04/2019 CBC shows anemia of 13/39 normocytic, normochromic, normal renal panel, normal hepatic panel, hep B,C neg i checked celiac panel and neg, ferritin nml, still has mild anemia--chronic REPEAT EGD/colon 09/2020: tubular adenoma removed, moderate gastritis, small bowel bx nml KUB: 05/2023 Few prominent air-filled loops of small bowel, moderate stool burden ? INTERIM: He tried rifaximin but didn;t work ongoing issues with stress and anxiety denies nausea or vomiting no blood in stool appetite is 'weird' he is eating, he lost weight without trying but gained it again he is not taking any pain meds he has ongoing chronic back tightness EXAM: GENERAL: The patient is well developed and nontoxic. VITAL SIGNS:see workflow HEENT: Nonicteric sclerae, PERRLA, EOMI. Oropharynx clear. Moist mucous membranes. Conjunctivae appear well perfused. No thyroid mass. CHEST: Chest wall is nontender. HEART: Regular rate and rhythm without murmurs. LUNGS: Clear to auscultation bilaterally. ABDOMEN: Soft, positive bowel sounds, nontender, no organomegaly.no flank tenderness SKIN: No rash, no excessive bruising, petechiae, or purpura. NEUROLOGIC: Cranial nerves II-XII intact without motor/sensory deficit. psych--nml affect boot on right foot Assessments ? 1/ IBS-C DDX: ADRIANA, SIBO, food intolerance , diaphragm dyssnergia PLAN: 1/ trial of trulance 2/ reviewed diaphragm breathing may have an element of diaphragm dyssnergia 3/ recheck labs incl LFT, vitamin levels PFSH Medical History Hx of opioid abuse Bipolar 1 disorder Surgical History History of esophagogastroduodenoscopy (EGD) History of colonoscopy History of ankle surgery Social History Household Members: Family Alcohol intake: current Alcohol intake frequency: 3 or more drinks per day Patient Tobacco Use Status: Current everyday Tobacco user Tobacco use type: Cigarette Cigarettes Per Day: 10 Years Smoked: 20 years Physical Exam Vital Signs: Last Vital Signs Pulse 94 08/30/23 14:44 BP 140/98 H 08/30/23 14:44 BMI result Body Mass Index 31.7 Assessment & Plan Assessment & Plan (1) Food allergy: Code(s): Z91.018 - Allergy to other foods (2) Brain fog: Code(s): R41.89 - Other symptoms and signs involving cognitive functions and awareness (3) Back pain: Code(s): M54.9 - Dorsalgia, unspecified (4) Slow transit constipation: Code(s): K59.01 - Slow transit constipation (5) Malnutrition: Code(s): E46 - Unspecified protein-calorie malnutrition Orders: Orders Vitamin A Today E46 - Unspecified protein-calorie malnutrition, K59.01 - Slow transit constipation, M54.9 - Dorsalgia, unspecified, R41.89 - Other symptoms and signs involving cognitive functions and awareness, Z91.018 - Allergy to other foods Vitamin B5 (Pantothenic Acid) Today E46 - Unspecified protein-calorie malnutrition, K59.01 - Slow transit constipation, M54.9 - Dorsalgia, unspecified, R41.89 - Other symptoms and signs involving cognitive functions and awareness, Z91.018 - Allergy to other foods Vitamin D 25-OH Total Today E46 - Unspecified protein-calorie malnutrition, K59.01 - Slow transit constipation, M54.9 - Dorsalgia, unspecified, R41.89 - Other symptoms and signs involving cognitive functions and awareness, Z91.018 - Allergy to other foods Vitamin E Today E46 - Unspecified protein-calorie malnutrition, K59.01 - Slow transit constipation, M54.9 - Dorsalgia, unspecified, R41.89 - Other symptoms and signs involving cognitive functions and awareness, Z91.018 - Allergy to other foods Zinc Today E46 - Unspecified protein-calorie malnutrition, K59.01 - Slow transit constipation, M54.9 - Dorsalgia, unspecified, R41.89 - Other symptoms and signs involving cognitive functions and awareness, Z91.018 - Allergy to other foods Ferritin Today E46 - Unspecified protein-calorie malnutrition, K59.01 - Slow transit constipation, M54.9 - Dorsalgia, unspecified, R41.89 - Other symptoms and signs involving cognitive functions and awareness, Z91.018 - Allergy to other foods Complete Blood Count Auto Diff Today E46 - Unspecified protein-calorie malnutrition, K59.01 - Slow transit constipation, M54.9 - Dorsalgia, unspecified, R41.89 - Other symptoms and signs involving cognitive functions and awareness, Z91.018 - Allergy to other foods Creatine Kinase Total Today E46 - Unspecified protein-calorie malnutrition, K59.01 - Slow transit constipation, M54.9 - Dorsalgia, unspecified, R41.89 - Other symptoms and signs involving cognitive functions and awareness, Z91.018 - Allergy to other foods Vitamin B12 and Folate Today E46 - Unspecified protein-calorie malnutrition, K59.01 - Slow transit constipation, M54.9 - Dorsalgia, unspecified, R41.89 - Other symptoms and signs involving cognitive functions and awareness, Z91.018 - Allergy to other foods Vitamin B1 Today E46 - Unspecified protein-calorie malnutrition, K59.01 - Slow transit constipation, M54.9 - Dorsalgia, unspecified, R41.89 - Other symptoms and signs involving cognitive functions and awareness, Z91.018 - Allergy to other foods Vitamin B3 (Niacin) Today E46 - Unspecified protein-calorie malnutrition, K59.01 - Slow transit constipation, M54.9 - Dorsalgia, unspecified, R41.89 - Other symptoms and signs involving cognitive functions and awareness, Z91.018 - Allergy to other foods Vitamin B6 Today E46 - Unspecified protein-calorie malnutrition, K59.01 - Slow transit constipation, M54.9 - Dorsalgia, unspecified, R41.89 - Other symptoms and signs involving cognitive functions and awareness, Z91.018 - Allergy to other foods Vitamin C Today E46 - Unspecified protein-calorie malnutrition, K59.01 - Slow transit constipation, M54.9 - Dorsalgia, unspecified, R41.89 - Other symptoms and signs involving cognitive functions and awareness, Z91.018 - Allergy to other foods Vitamin K1 Today E46 - Unspecified protein-calorie malnutrition, K59.01 - Slow transit constipation, M54.9 - Dorsalgia, unspecified, R41.89 - Other symptoms and signs involving cognitive functions and awareness, Z91.018 - Allergy to other foods Comprehensive Met. Panel Today E46 - Unspecified protein-calorie malnutrition, K59.01 - Slow transit constipation, K75.81 - Nonalcoholic steatohepatitis (MOLINA), M54.9 - Dorsalgia, unspecified, R41.89 - Other symptoms and signs involving cognitive functions and awareness, Z91.018 - Allergy to other foods Aldolase Today E46 - Unspecified protein-calorie malnutrition, K59.01 - Slow transit constipation, M54.9 - Dorsalgia, unspecified, R41.89 - Other symptoms and signs involving cognitive functions and awareness, Z91.018 - Allergy to other foods Erythrocyte Sedimentation Rate Today E46 - Unspecified protein-calorie malnutrition, K59.01 - Slow transit constipation, M54.9 - Dorsalgia, unspecified, R41.89 - Other symptoms and signs involving cognitive functions and awareness, Z91.018 - Allergy to other foods Medications: New plecanatide (Trulance) 3 mg PO DAILY 30 tabs 2RF Coding Level of Care Code Est Pt Level 3 (60768) Diagnoses Food allergy Z91.018 Brain fog R41.89 Back pain M54.9 Slow transit constipation K59.01 Malnutrition E46
[2023-08-30 14:44] VITALS: BP 140/98; PULSE 94; BMI 31.7
== END 2023-08-30 15:20 | disposition home or self-care (01) ==
PROVIDERS: PCP Internal Medicine; Visit Provider Internal Medicine Gastroenterology
DX: Z91.018 Allergy to other foods (principal); R41.89 Other symptoms and signs involving cognitive functions and awareness; M54.9 Dorsalgia, unspecified; K59.01 Slow transit constipation; E46 Unspecified protein-calorie malnutrition
CPT/HCPCS: 99213

== ENCOUNTER → 2023-08-30 14:36 | Outpatient (BNVA) | payer OTHER, SELFPAY | PROVIDERS: PCP Internal Medicine; Visit Provider Internal Medicine Gastroenterology | DX: K59.01 Slow transit constipation (principal); R41.89 Other symptoms and signs involving cognitive functions and awareness; E46 Unspecified protein-calorie malnutrition; M54.9 Dorsalgia, unspecified; Z91.018 Allergy to other foods | CPT/HCPCS: 99212 ==

== ENCOUNTER 2023-09-02 14:18 | Outpatient (REF) | payer OTHER, SELFPAY ==
[2023-09-02 15:44] LABS: MANUAL DIFF FLAG NO
[2023-09-02 15:47] LABS: Basophils Percent Auto 0.5 % (0-2); Eosinophils Absolute Auto 0.2 X10*3/uL (0.0-0.4); Eosinophils Percent Auto 3.2 % (0-4); Hematocrit 45.7 % (42.0-52.0); Hemoglobin 15.6 g/dl (14.0-18.0); Imm Gran Abs Auto 0.15 X10*3/uL (0.00-0.03); Imm Gran Pct Auto 2.3 % (0.0-0.4); Lymphocytes Absolute Auto 1.5 X10*3/uL (1.2-4.9); Lymphocytes Percent Auto 22.6 % (20-40); Mean Corpuscular HGB Conc 34.1 g/dl (31.0-36.0); Mean Corpuscular Hemoglobin 35.3 pg (27.0-33.0); Mean Corpuscular Volume 103.4 fL (80.0-98.0); Mean Platelet Volume 10.1 fL (9.4-12.4); Monocytes Absolute Auto 0.7 X10*3/uL (0.1-1.2); Monocytes Percent Auto 10.2 % (2-11); Neutrophils Percent Auto 61.2 % (45-73); Platelet Count 175 X10*3/uL (160-400); Red Blood Count 4.42 X10*6/uL (4.60-5.80); Red Cell Distribution Width 13.2 % (11.0-16.0); White Blood Count 6.5 X10*3/uL (4.8-10.8)
[2023-09-02 16:20] LABS: Alanine Aminotransferase 82 U/L (0-40); Albumin Level 4.2 g/dL (3.5-5.0); Alkaline Phosphatase 89 U/L (39-117); Anion Gap 12 (12-20); Aspartate Amino Transferase 86 U/L (5-37); Bilirubin Total 1.1 mg/dL (0.0-1.0); Blood Urea Nitrogen 11 mg/dL (9-16); Calcium 8.9 mg/dL (8.4-10.2); Carbon Dioxide 27 mmol/L (22-29); Chloride 100 mmol/L (96-108); Estimated Glomerular Filt Rate > 60; Glucose Random 98 mg/dL (60-115); Potassium 3.5 mmol/L (3.3-5.1); Sodium 135 mmol/L (135-145); Total Protein 7.1 g/dL (6.5-8.0)
[2023-09-02 16:35] LABS: Ferritin 239 ng/mL (20-250); Vitamin D 25-OH Total 24.3 ng/mL (>30)
[2023-09-02 16:50] LABS: Folate 13.4 ng/mL (> or = 4.0); Vitamin B12 1207 pg/mL (200-900)
[2023-09-02 19:53] LABS: Erythrocyte Sedimentation Rate 7 MM/HR (0-15)
[2023-09-05 16:23] LABS: Zinc 70 mcg/dL (60-130)
[2023-09-06 12:52] LABS: Vitamin B1 31 nmol/L (8-30)
[2023-09-06 14:44] LABS: Vitamin B6 39.5 ng/mL (2.1-21.7)
[2023-09-07 06:09] LABS: Aldolase 6.1 U/L (<=8.1)
[2023-09-07 17:19] LABS: Vitamin C 0.8 mg/dL (0.2-2.1)
[2023-09-08 12:54] LABS: Vitamin A 51 mcg/dL (38-98)
[2023-09-08 18:24] LABS: Vitamin K1 171 pg/mL (130-1500)
[2023-09-08 20:37] LABS: Vitamin B5 (Pantothenic Acid) <40 ng/mL (<275)
[2023-09-09 02:43] LABS: Alpha-Tocopherol 15.9 mg/L (5.7-19.9); Beta-Gamma Tocopherol <1.0 mg/L (<=4.3)
[2023-09-09 11:29] LABS: Nicotinamide <20 ng/mL; Vit B3 - Nicotinic Acid <20 ng/mL
== END 2023-09-02 14:19 | disposition home or self-care (01) ==
LOC: HO.HHCL 14:18
PROVIDERS: Visit Provider Internal Medicine Gastroenterology
DX: M54.9 Dorsalgia, unspecified (principal); K59.01 Slow transit constipation; E46 Unspecified protein-calorie malnutrition; K75.81 Nonalcoholic steatohepatitis (NASH); R41.89 Other symptoms and signs involving cognitive functions and awareness; Z91.018 Allergy to other foods
CPT/HCPCS: 36415; 80053; 82085; 82180; 82306; 82550; 82607; 82728; 82746; 84207; 84425; 84446; 84590; 84591; 84597; 84630; 85025; 85652

== ENCOUNTER 2023-10-29 11:19 | Outpatient (AMB) | payer OTHER, SELFPAY ==
--- NOTE | 2023-10-29 11:14 | MHC.OFFVIS ---
Intake Intake Visit Reasons: LDCT SD Allergies No Known Allergies [No Known Allergies*] Allergy (Verified 08/30/23 14:50) HPI HPI Comments History of Present Illness Details David is a pleasant 52 year old male, current smoker with a 28+ PYH. Patient has been smoking since age 15 for 37 years at 0.5-1 ppd. Denies marijuana use. Denies exposure to chemicals or substances like asbestos. Admits second hand smoke exposure. Denies known family history of lung cancer. Denies personal history of cancers. Denies chest CT in last year. Denies recent travel outside the [place]. Denies testing positive for COVID. Admits receiving COVID Vaccine. Denies fever, chills, chest pain, new cough, hemoptysis or unintentional weight loss. Lung Cancer Screening Questionnaire reviewed with patient by provider. Shared Decision Making Completed. Discussed in detail with patient, the risk versus benefit of LDCT screening. Patient in agreement of proceeding with scan. [facility] Medical History Hx of opioid abuse Bipolar 1 disorder Surgical History History of esophagogastroduodenoscopy (EGD) History of colonoscopy History of ankle surgery Social History Household Members: Family Alcohol intake: current Alcohol intake frequency: 3 or more drinks per day Patient Tobacco Use Status: Current everyday Tobacco user Tobacco use type: Cigarette Cigarettes Per Day: 10 Years Smoked: 20 years Assessment & Plan Assessment & Plan (1) Nicotine dependence: Code(s): F17.200 - Nicotine dependence, unspecified, uncomplicated Plan Shared decision-making visit completed today in office. This patient meets criteria for LDCT for lung cancer screening purposes and is asymptomatic. Offered smoking cessation. Patient has been scheduled for a low dose chest CT for screening purposes at [facility]. We discussed how the results will be obtained depending on CT findings. RADS 1 and RADS 2 will receive a letter with results and will follow up for annual LDCT. Patient informed they will be contacted at later date to schedule upcoming LDCT scan. RADS 3 and RADS 4 will receive a telephone call, or an office visit after reviewing case at our Lung Cancer Conference to determine when the next LDCT will be scheduled or further interventions that may be needed. Discussed importance of screening program and compliance with yearly LDCT scan as scheduled. Risks, benefits, and alternatives were discussed in detail and patient agrees to proceed. Risks discussed include but are not limited to: radiation exposure and possibility of additional intervention for benign disease. Benefits include detection of lung cancer at an early stage. A copy of today's visit and LDCT results will be sent to patient's PCP. Incidental findings on LDCT are PCP's responsibility. If there are incidental findings, our office will ensure that PCP office is aware of these findings. All questions were answered and patient is in agreement of plan. Coding Level of Care Code Lung Cancer Screening G0296 Diagnoses Nicotine dependence F17.200
== END 2023-10-29 11:34 | disposition home or self-care (01) ==
PROVIDERS: PCP Internal Medicine; Visit Provider Nurse Practitioner Family
DX: F17.200 Nicotine dependence, unspecified, uncomplicated (principal)
CPT/HCPCS: G0296

== ENCOUNTER 2023-10-29 11:40 | Outpatient (REF) | payer OTHER, SELFPAY ==
--- NOTE | ~2023-10-29 | CT_ITS ---
EXAMINATION: CT CHEST SCREENING CLINICAL INFORMATION: Smoker with 20 pack year history. COMPARISON: Baseline. TECHNIQUE: Multidetector volumetric CT imaging of the chest is performed without contrast using low dose technique. Additional 2D coronal and sagittal reformatted images and axial 3D maximum intensity projection (MIP) images are generated on the CT workstation. This CT examination was performed using dose optimization techniques as appropriate, variously including the following: *Automated exposure control *Adjustment of mA and/or kV according to patient size (this includes techniques or standardized protocols for targeted exams where dose is matched to indication/reason for exam; i.e. 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 LUNGS: Trachea and bronchi are patent. Mild bronchial wall thickening. Centrilobular emphysema with hyperinflation, increased AP diameter to the chest and flattening of the hemidiaphragms. Scattered atelectasis. MEDIASTINUM: Unremarkable thyroid. Mildly thickened and dilated esophagus. No pathologic lymphadenopathy. Nonenlarged heart. No pericardial effusion. Mild atherosclerotic calcifications nonaneurysmal aorta. Nonenlarged pulmonary arteries. CORONARY ARTERY CALCIFICATION: Mild. PLEURA: Small right seth fissural lymph node. There is no pleural effusion. No pleural mass or thickening AXILLA: No lymphadenopathy. UPPER ABDOMEN: Low density, heterogeneous, small lobulated liver. Partial visualization of the anteriorly bulbous right kidney kidney OSSEOUS STRUCTURES: No suspicious osseous lesions CT/CT lung screening IMPRESSION: No suspicious lung lesions. Centrilobular emphysema and mild bronchial wall thickening. Slightly thickened and dilated thoracic esophagus. Partial visualization bulbous appearance anterior right kidney. Cirrhotic liver. ASSESSMENT: Lung-RADS category 1S: Negative RECOMMENDATION: Routine annual low-dose CT screening in 12 months. Follow-up liver protocol CT or MRI for cirrhotic liver, correlate with LFTs. Follow-up ultrasound or cross-sectional imaging for bulbous appearing right kidney.
== END 2023-10-29 11:41 | disposition home or self-care (01) ==
LOC: HO.CT 11:40
PROVIDERS: PCP Internal Medicine; Visit Provider Nurse Practitioner Family
DX: Z12.2 Encounter for screening for malignant neoplasm of respiratory organs (principal); F17.210 Nicotine dependence, cigarettes, uncomplicated
CPT/HCPCS: 71271; G0296

== ENCOUNTER → 2023-11-25 14:00 | Outpatient (BNV) | payer OTHER, SELFPAY | PROVIDERS: PCP Internal Medicine; Visit Provider Internal Medicine Medical Oncology | DX: D75.89 Other specified diseases of blood and blood-forming organs (principal) | CPT/HCPCS: 99204 ==

== ENCOUNTER 2024-02-17 15:44 | Outpatient (REF) | payer OTHER, SELFPAY ==
[2024-02-17 17:42] LABS: Blood Urea Nitrogen 8 mg/dL (9-16); Estimated Glomerular Filt Rate > 60
== END 2024-02-17 15:45 | disposition home or self-care (01) ==
LOC: HO.CHCLDS 15:44
PROVIDERS: Visit Provider Internal Medicine
DX: K74.69 Other cirrhosis of liver (principal)
CPT/HCPCS: 36415; 82565; 84520

== ENCOUNTER 2024-04-13 16:24 | Outpatient (REF) | payer OTHER, SELFPAY | END 2024-04-13 16:25 | disposition home or self-care (01) | LOC: HO.LNP 16:24 | PROVIDERS: Visit Provider Emergency Medicine | DX: F11.20 Opioid dependence, uncomplicated (principal) | CPT/HCPCS: 80353 ==

== ENCOUNTER 2024-08-03 14:48 | Outpatient (REF) | payer OTHER, SELFPAY ==
--- NOTE | ~2024-08-03 | XR_ITS ---
EXAMINATION: XR FOOT, RIGHT CLINICAL INFORMATION: Pain. Ulcer. COMPARISON: Right foot MRI dated 07/07/2023. TECHNIQUE: AP, lateral, and bilateral oblique views of the right foot. FINDINGS: Density related to probable wound dressing over the great toe. This limits evaluation; however, there is no significant cortical erosion or periosteal reaction. Distal great toe soft tissue swelling. No radiopaque foreign body. No acute fracture or dislocation. Joint space narrowing with marginal osteophytes at the second metatarsophalangeal joint. No osseous erosion. Partially visualized distal fibular ORIF without evidence of hardware complication. XR/XR foot RT min 3V IMPRESSION: Distal great toe soft tissue swelling without radiopaque foreign body or significant cortical erosion or periosteal reaction. Early osteomyelitis may be occult on plain radiographs and if there is clinical concern, bone scan or MRI without and with contrast could help further evaluate. Electronically signed by: Kenroy Hugo MD 08/04/2024 09:34 AM EDT
== END 2024-08-03 14:49 | disposition home or self-care (01) ==
LOC: HO.HHCX 14:48
PROVIDERS: Visit Provider Surgery
DX: L97.512 Non-pressure chronic ulcer of other part of right foot with fat layer exposed (principal); G60.9 Hereditary and idiopathic neuropathy, unspecified
CPT/HCPCS: 73630

== ENCOUNTER 2024-08-03 15:04 | Outpatient (REF) | payer OTHER, SELFPAY ==
[2024-08-03 16:26] LABS: MANUAL DIFF FLAG NO
[2024-08-03 16:31] LABS: Basophils Percent Auto 0.5 % (0-2); Eosinophils Absolute Auto 0.4 X10*3/uL (0.0-0.4); Eosinophils Percent Auto 5.5 % (0-4); Hematocrit 43.1 % (42.0-52.0); Hemoglobin 14.7 g/dl (14.0-18.0); Imm Gran Abs Auto 0.15 X10*3/uL (0.00-0.03); Imm Gran Pct Auto 2.3 % (0.0-0.4); Lymphocytes Absolute Auto 1.6 X10*3/uL (1.2-4.9); Lymphocytes Percent Auto 23.7 % (20-40); Mean Corpuscular HGB Conc 34.1 g/dl (31.0-36.0); Mean Corpuscular Hemoglobin 34.6 pg (27.0-33.0); Mean Corpuscular Volume 101.4 fL (80.0-98.0); Mean Platelet Volume 10.5 fL (9.4-12.4); Monocytes Absolute Auto 0.7 X10*3/uL (0.1-1.2); Monocytes Percent Auto 10.8 % (2-11); Neutrophils Absolute Auto 3.8 x10*3/uL (2.0-8.3); Neutrophils Percent Auto 57.2 % (45-73); Platelet Count 168 X10*3/uL (160-400); Red Blood Count 4.25 X10*6/uL (4.60-5.80); Red Cell Distribution Width 13.2 % (11.0-16.0); White Blood Count 6.6 X10*3/uL (4.8-10.8)
[2024-08-03 16:43] LABS: Alanine Aminotransferase 24 U/L (0-40); Albumin Level 4.2 g/dL (3.5-5.0); Alkaline Phosphatase 73 U/L (39-117); Anion Gap 10 (12-20); Aspartate Amino Transferase 28 U/L (5-37); Bilirubin Total 0.9 mg/dL (0.0-1.0); Blood Urea Nitrogen 10 mg/dL (9-16); Calcium 9.1 mg/dL (8.4-10.2); Carbon Dioxide 29 mmol/L (22-29); Chloride 102 mmol/L (96-108); Estimated Glomerular Filt Rate > 60; Glucose Random 81 mg/dL (60-115); Potassium 3.7 mmol/L (3.3-5.1); Sodium 137 mmol/L (135-145); Total Protein 7.4 g/dL (6.5-8.0)
== END 2024-08-03 15:05 | disposition home or self-care (01) ==
LOC: HO.HHCL 15:04
PROVIDERS: Visit Provider Internal Medicine Medical Oncology
DX: D75.89 Other specified diseases of blood and blood-forming organs (principal)
CPT/HCPCS: 36415; 80053; 85025

== ENCOUNTER 2025-01-19 14:03 | Outpatient (RCR) | payer OTHER, SELFPAY | END 2025-01-19 16:00 | disposition home or self-care (01) | LOC: HO.WCC 14:03 | PROVIDERS: PCP Internal Medicine; Visit Provider Surgery | DX: L97.512 Non-pressure chronic ulcer of other part of right foot with fat layer exposed (principal); G60.9 Hereditary and idiopathic neuropathy, unspecified; L84 Corns and callosities | CPT/HCPCS: 11042; 15275; 29445; 99212; Q4187 ==

== ENCOUNTER 2025-01-30 15:21 | Outpatient (REF) | payer OTHER, SELFPAY ==
--- NOTE | ~2025-01-30 | CT_ITS ---
CLINICAL HISTORY: F17.210 - Nicotine dependence, cigarettes, uncomplicated CT lung cancer screening (LDCT) Comparison: CT/SR - CT LUNG SCREENING - 10/29/23 11:47 EST Technique: Axial CT images of the chest using low-dose technique. Referring provider counseled the patient on shared decision-making for LDCT screening. Additional counseling was provided on smoking cessation. Effective radiation dose total: DLP 59.8 mGycm, CTDIvol 1.6 mGy. Findings: Lung: The trachea and central bronchi are patent. Mild apical centrilobular emphysema without dense consolidation, pleural effusion or pneumothorax. Small right-sided pulmonary nodules are unchanged. No new or enlarging pulmonary nodules. Coronary artery calcifications: Mild Mediastinal structures are otherwise unremarkable. No adenopathy or chest wall lesions. Thyroid not well seen. Limited upper abdomen: Cirrhotic hepatic morphology. No upper abdominal ascites. Other: No acute osseous findings Impression: Apical emphysematous change with stable noncalcified subcentimeter pulmonary nodules. Lung rads category 2 Cirrhotic hepatic morphology. Category 1: Normal; continue annual screening Category 2: Benign appearance or behavior, continue annual screening Category 3: Probably benign, [address] recommended Category 4A: Suspicious, [address] recommended; may consider PET/CT Category 4B: Suspicious, Additional diagnostics and/or tissue sampling recommended Category 4X: Suspicious, Additional diagnostics and/or tissue sampling recommended Category 0: Recalls (incomplete screen due to Incomplete coverage, Noise, Respiratory motion, Expiration, Obscured by acute abnormality) This document has been electronically signed by: Suellen Maya MD on 02/01/2025 09:03:36
--- OUTSIDE RECORDS SUMMARY | 2025-01-30 18:14 | XMS_ITS | Clinical Summary ---
Author Organization [employer] Address [address] [facility] 7[address] [place] [address] Care Team Providers Care Plug Saw Operator Name Role Phone Presley Montgomery MD Primary Care Prov ider Allergies No known active allergies Medications * This document contains information received from the source organization and may not represent a complete record from that organization. ALPRAZolam (Xanax) 0.5 MG tablet Take 1 tablet by mouth every 8 (eight) hours. Active amphetamine-d extroamphetam ine (Adderall) 10 MG tablet Take 1 tablet by mouth at bed time. Active gabapentin (Neurontin) 600 MG tablet Take 1 tablet by mouth every 8 (eight) hours. Active melatonin 10 MG tablet Take by mouth. 03/31/20 22 Active zolpidem (Ambien) 10 MG tablet TAKE 1 TABLET BY MOUTH EVERY DAY AT BEDTIME NEEDED FOR SLEEP. DISCONTINUE REMERON 08/25/20 22 Active melatonin 5 MG tablet Take 2 tablets (10 mg) by mouth at bedtime. TAKE 2 TABLETS BY MOUTH AT BEDTIME 60 tablet 1 06/10/20 23 Active desvenlafaxin e (Pristiq) 50 MG 24 hr tablet 10/26/20 23 Active Trulance tablet tablet Take 1 tablet by mouth in the morning. 09/27/20 23 Active sildenafil (Viagra) 100 MG tabletIndicat ions:Impotenc e TAKE 1 TABLET BY MOUTH BEFORE SEXUAL RELATIONS ONCE DAILY NEEEDED 30 tablet 09/15/20 24 Active Buprenorphine HCl-Naloxone HCl (Suboxone) 8-2 MG SL filmIndicatio ns:Uncomplica alexander opioid dependence (CMS/HCC) Place 2 Film under the tongue Once per day for 28 days. 56 Film 01/19/20 25 025 Active Buprenorphine HCl-Naloxone HCl (Suboxone) 8-2 MG SL filmIndicatio ns:Uncomplica alexander opioid dependence (CMS/HCC) Place 2 Film under the tongue Once per day. 56 Film 1 11/16/19 25 025 Discontinued(Re order (will not trigger notification to Pharmacy)) Buprenorphine HCl-Naloxone HCl (Suboxone) 8-2 MG SL filmIndicatio ns:Uncomplica alexander opioid dependence (CMS/HCC) Place 2 Film under the tongue Once per day. 56 Film 1 01/09/20 25 025 Discontinued(Re order (will not trigger notification to Pharmacy)) Active Problems Problem Noted Date Diagnosed Date Alcohol use, unspecified wit h unspecified alcohol-induced disorder 04/13/2023 Assessment & Plan (04/13/2023 1:35 PM EDT): Assessment David was engaged with active reflective listening and open-ended questions. Assessed symptoms, risks, and social supports with direct questions. Discussed current symptoms intensity and frequency. Emotions were normalized and validated. David identified meditation and sleep music as coping mechanisms and music as protective factors. Discussed OP therapy and recommended and gave contact information [facility] for OP therapy, he also agreed to a OP referral, he requested a white male that do dual diagnosis for therapist. Provided education around integrated medicine and the options of follow up BE's as needed. Provided contact information should questions or concerns arise. Plan: David will be referred to OP services for Ind. Therapy. He will continue to engage in effective coping mechanisms of that has worked for him. Referral will be placed for Ind. Therapy. 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 Patient will benefit from Ind. Therapy with CBT to learn skills to cope with sxs and avoid self medicating. At this time David Bradley meets criteria for Visit Diagnoses: Problem List Items Addressed This Visit Other Bipolar 1 disorder (CMS/HCC) - Primary Relevant Orders Referral to Behavioral Health Alcohol use, unspecified with unspecified alcohol-induced disorder (CMS/HCC) Other Visit Diagnoses Alcohol dependence with unspecified alcohol-induced disorder (CMS/HCC) Relevant Orders Referral to Behavioral Health Patient ready to address current needs Yes Strengths include Is in action stage of change. PLAN: 1. Follow up with [facility]: Not recommended for follow-up , encouraged to reach out for support as needed. 2. Patient goal is to become mentally stable and avoid self medicating with alcohol. 3. Behavioral Recommendations a. Ind. Therapy b. Pull Out Operator c. Reach out IB as needed for extra support. 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 Given copy and faxed to psych provider. Recommended f/up with PCP for other concerns. Assessment & Plan (01/28/2023 4:56 PM EDT): Followed by psych, denied suicidal/homicidal ideas, no recent exacerbation, follow psych reccomendations Hepatic cirrhosis 11/26/2022 Overview (11/26/2022): Secondary to alcohol abuseCT showing nodular liver/?hemangioma. Is following with [facility] Impotence 11/26/2022 Assessment & Plan (01/28/2023 4:54 PM EDT): On sildenafil which is helping, will continue current treatment Pancytopenia 11/26/2022 Overview (11/26/2022): resolvedSecondary to liver disease Tobacco dependence syndrome 11/26/2022 Assessment & Plan (03/03/2023 6:26 PM EDT): Will place Ctx consult or lung cancer screening Peripheral nerve disease 01/08/2022 Stimulant dependence 09/23/2017 Encounters Date Type Department Care Team Description 01/18/2025 2:00 PM EST Office Visit [facility] [address] [place] [address] Sharda Rich MD Uncomplicated opioid dependence (CMS/HCC) (Primary Dx); Cocaine use 01/18/2025 Refill [facility] [address] [place] [address] Sorin Mensah RN Uncomplicated opioid dependence (CMS/HCC) 01/18/2025 Travel 01/09/2025 Refill [facility] [address] [place] [address] Sharda Rich MD Uncomplicated opioid dependence (CMS/HCC) 11/23/2024 1:45 PM EST Office Visit [facility] [address] [place] [address] Sharda Rich MD Uncomplicated opioid dependence (CMS/HCC) (Primary Dx) 11/23/2024 Travel 11/16/2024 Refill [facility] [address] [place] [address] Sorin Mensah RN Uncomplicated opioid dependence (CMS/HCC) from Last 3 Months Immunizations Name Administration Dates Next Due Hep A / Hep B 01/21/2012,09/01/2011,07/28/2011 Hep B, adult 04/06/2019, 8,09/01/2018,09/08 Influenza Whole 07/25/2009,10/18/2008 Influenza injectable quadriv alent IIV4 with preservative 08/30/2018 Influenza injectable quadriv alent preservative free 11/02/2023,09/01/2022,08/04/2019,08/11 Influenza, IIV3, injectable 08/19/2021,0 07/02/2014,08/07/2013,07/28 Influenza, seasonal, injecta ble, preservative free 07/05/2017,08/22/2015 Pneumococcal Polysaccharide PPSV23 08/11/2016 Tdap 08/30/2018 Tetanus Toxoid, Unspecified 02/12/2009 Zoster, Recombinant 11/26/2023 Social History Tobacco Use Types Packs/Day Years Used Date Smoking Tobacco: Every Day Cigarettes Tobacco Cessation:Ready to Q uit: Not Asked; Counseling Given: Not Answered Depression Answer Date Recorded Patient Health Questionnaire-9 Score 17 04/13/2023 Housing Stability Answer Date Recorded What is your housing situation today? I have reji white 08/30/[address] you li ve. Do you have problems with any of the following? None of the above 08/30/2023 Food Insecurity Answer Date Recorded Within the past 12 months, y ou worried that your food would run out before you got money to buy more: Never True 08/30/2023 Within the past 12 months,th e food you bought just didn't last and you didn't have enough money to get more: Never True Transportation Answer Date Recorded In the past 12 months, has l ack of transportation kept you from medical appts, meetings, work or from getting things needed for daily living? No 08/30/2023 Utilities Answer Date Recorded In the past 12 months, has t he electric, gas, oil or water company threatened to shut off services in your home? No 08/30/2023 Depression Answer Date Recorded Patient Health Questionnaire-2 Score 3 04/13/2023 Sex and Gender Information Value Date Recorded Sex Assigned at Male 09/14/2022 10:25 AM EDT Legal Sex Male 10:25 AM EDT Gender Identity Male 09/14/2022 10:25 AM EDT Sexual Orientation Straight 09/14/2022 10 :25 AM EDT Last Filed Vital Signs Vital Sign Reading Time Taken Comments Blood Pressure 125/79 01/18/2025 2:38 PM EST Pulse 73 01/18/2025 2:38 PM EST Temperature 36.8 ??C (98.2 ??F) 01/18/2025 2:38 PM ES T Respiratory Rate 16 03/03/2023 3:17 PM EDT Oxygen Saturation - - Inhaled Oxygen Concentration - - Weight 88.9 kg (196 lb) 03/03/2023 3:17 PM EDT Height 182.9 cm (6') 03/03/2023 3:17 PM EDT Body Mass Index 26.58 03/03/2023 3:17 PM EDT Plan of Treatment Upcoming Encounters Date Type Department Care Team (Late st Contact Info) Description 02/15/2025 1:15 PM EDT Office Visit [facility] [address] [place] [address] Sharda Rich MD [address] [place], [place] [phone] Health Maintenance Due Date Last Done Comments CT Colonography 1969 Colonoscopy 1969 Colorectal Cancer Screening 1969 FIT DNA/Cologuard 1969 FIT 1969 FOBT 1969 Sigmoidoscopy 1969 Alcohol/Substance Use Screening 1981 Hepatitis A Vaccines (4 of 4 - Hep A Twinrix risk 4-dose series) 07/28/2012 01/21/2012, 09/01/2011, 07/28/2011 Pneumococcal Vaccine: 50+ Years (2 of 2 - PCV) 08/11/2017 08/11/2016 Depression Monitoring (PHQ-9) 10/14/2023 04/13/2023, 04/13/2023 SDOH Screening 12/31/2023 12/31/2022 Zoster Vaccines (2 of 2) 01/21/2024 11/26/2023 Depression Screening 04/13/2024 04/13/2023, 04/13/20 23 COVID-19 Vaccine ( season) 2024 11/02/2023, 10/28/2022, 03/24/2022, Additional history exists Influenza Vaccine (#1) 2024 , 09/01/2022, 08/19/2021, Additional history exists Tobacco Screening 10/02/2025 10/02/2024 Lipid Panel 03/25/2027 03/25/2022 DTaP/Tdap/Td Vaccines (2 - Td or Tdap) 08/30/2028 08/30/2018, 02/12/2009 RSV Patients and Patients Aged 60 years or older (1 - 1-dose 75+ series) 2044 Hepatitis B Vaccines Completed 04/06/2019, 10/27/2018, 09/01/2018, Additional history exists HIV Screening Completed 12/24/2022 Hepatitis C Screening Completed 12/24/2022 HIB Vaccines Aged Out No longer eligi ble based on patient's age to complete this topic HPV Vaccines Aged Out No longer eligi ble based on patient's age to complete this topic IPV Vaccines Aged Out No longer eligi ble based on patient's age to complete this topic Meningococcal Vaccine Aged Out No brendan es eligible based on patient's age to complete this topic RSV under 20 months Aged Out No longe r eligible based on patient's age to complete this topic Rotavirus Vaccines Aged Out No longer eligible based on patient's age to complete this topic Procedures Procedure Name Priority Date/Time Associated Diagnosis Comments POCT ANA PAULA-14 URINE DRUG SCREEN Routine 01/18/2025 2:34 PM EST Uncomplicated opioid dependence (CMS/HCC) POCT ANA PAULA-14 URINE DRUG SCREEN Routine 11/23/2024 3:53 PM EST Uncomplicated opioid dependence (CMS/HCC) HEPATITIS C AB W/REFL TO HCV RNA, QN, PCR Routine 12/24/2022 12:26 PM EST Opioid use disorder HIV 1/2 ANTIGEN/ANTIBODY, FOURTH GENERATION W/RFL Routine 12/24/2022 12:26 PM EST Opioid use disorder LIPID PANEL, STANDARD Routine 03/25/2022 1:46 PM EDT from Last 3 Months or Most Recently Relevant to Health Maintenance Results * POCT ANA PAULA-14 Urine Drug Screen (01/18/2025 2:34 PM EST) Only the most recent of2 resultswithin the time period is included. THC Negative Cocaine Screen, Urine Positive Opiate Screen, Urine Negative Methamphetamine Screen Urine Negative Amphetamine Screen, Urine Negative Benzodiazepines Screen, Urine Positive Barbiturate Screen, Urine Negative Methadone Screen, Urine Negative Buprenophine Screen, Urine Positive TCA, Urine Negative MDMA Urine Negative ng/mL Oxycodone Screen, Urine Negative Phencyclidine (PCP), Urine Negative Propoxyphene, Urine Negative Fentanyl, Urine Negative Urine Urine specimen obtained by clean catch procedure / Unknown 01/18/2025 2:34 PM EST Sharda Rich MD POINT OF CARE TEST ENTER/KOBE T ORDERABLES Final Result * Hepatitis C Antibody with Reflex to HCV, RNA, Quantitative, Real-Time PCR (12/24/2022 12:26 PM EST) [facility] Hepatitis C Antibody NON-REACT DAVID NON-REACT DAVID [facility] Index 0.02 <1.00 [facility] Comment: HCV antibody was non-reactive. There is no laboratory evidence of HCV infection. In most cases, no further action is required. However, if recent HCV exposure is suspected, a test for HCV RNA (test code 33626) is suggested. For additional information please refer to http://education.MailMag/faq/WHM07f0 (This link is being provided for informational/ educational purposes only.) Blood Venous blood specimen / Unknown 12/24/2022 12:26 PM EST 12/24/2022 12:27 PM EST Narrative [facility] - 12/25/2022 2:10 AM EST FASTING:NO FASTING: NO Sharda Rich MD LAB BLOOD ORDERABLES Final R esult [facility] [address] [facility] [address] [facility], [facility], [place] [address] [facility] [address], ([address]) [place] [address] * HIV-1/2 Antigen and Antibodies, Fourth Generation, with Reflexes (12/24/2022 12:26 PM EST) [facility] HIV Antigen/Antibody, 4th Generation NON-REAC TIVE NON-REAC TIVE [facility] Comment: HIV-1 antigen and HIV-1/HIV-2 antibodies were not detected. There is no laboratory evidence of HIV infection. PLEASE NOTE: This information has been disclosed to you from records whose confidentiality may be protected by state law. ??If your state requires such protection, then the state law prohibits you from making any further disclosure of the information without the specific written consent of the person to whom it pertains, or as otherwise permitted by law. A general authorization for the release of medical or other information is NOT sufficient for this purpose. ?? For additional information please refer to http://education.MailMag/faq/LKP870 (This link is being provided for informational/ educational purposes only.) The performance of this assay has not been clinically validated in patients less than 2 years old. Blood Venous blood specimen / Unknown 12/24/2022 12:26 PM EST 12/24/2022 12:27 PM EST Narrative [facility] - 12/25/2022 2:10 AM EST FASTING:NO FASTING: NO Sharda Rich MD LAB BLOOD ORDERABLES Final R esult [facility] [address], [place] [address] [facility] [employer] [address] [facility], ([address]) [place] [address] * (ABNORMAL) LIPID PANEL, STANDARD (03/25/2022 1:46 PM EDT) Pathologist [facility] Chol/HDLC Ratio 3.9 <5.0 (calc) [facility] Cholesterol, Total 187 <200 mg/dL [facility] HDL Cholesterol 48 > OR = 40 mg/dL [facility] LDL Cholesterol 122(H) mg/dL (calc) [facility] Comment: Reference range: <100 ?? Desirable range <100 mg/dL for primary prevention; ?? <70 mg/dL for patients with CHD or diabetic patients ?? with > or = 2 CHD risk factors. ?? LDL-C is now calculated using the Red-Brown ?? calculation, which is a validated novel method providing ?? better accuracy than the Friedewald equation in the ?? estimation of LDL-C. ?? Red SS et al. ROSALEE. 2013;310(19): 0720-4101 ?? (http://education.Survmetrics/faq/KIK803) Non-HDL Cholesterol 139(H) <130 mg/dL (calc) [facility] Comment: For patients with diabetes plus 1 major ASCVD risk ?? factor, treating to a non-HDL-C goal of <100 mg/dL ?? (LDL-C of <70 mg/dL) is considered a therapeutic ?? option. Triglycerides 78 <150 mg/dL [facility] 03/25/2022 1:46 PM EDT us Presley Mclaughlin MD LAB BLOOD ORDERABL ES Final Result [facility] [address] from Last 3 Months or Most Recently Relevant to Health Maintenance Insurance - [employer] Care Teams Plug Saw Operator Relationship Specialty Start Date End Date Presley Montgomery MD [address] [place] [id number] PCP - General Internal Medicine 04/05/20
--- OUTSIDE RECORDS SUMMARY | 2025-01-30 18:14 | XMS_ITS | Encounter Summary ---
Author Organization [employer] Address [address] [facility] [address] [place] [address] Care Team Providers Care Hotel Front Office Manager Name Role Phone Presley Montgomery MD Primary Care Prov ider Reason for Visit * Reason Onset Date Comments Med Refill 01/09/2025 Encounter Details Date Type Department Care Team (Late st Contact Info) Description 01/09/2025 Refill [facility] [address] [place], [place] [phone] Sharda Rich MD [address] [place], [place] [phone] Uncomplicated opioid dependence (CMS/HCC) Social History Tobacco Use Types Packs/Day Years Used Date Smoking Tobacco: Every Day Cigarettes Depression Answer Date Recorded Patient Health Questionnaire-9 [...] Orientation Straight 09/14/2022 10 :25 AM EDT documented as of this encounter Plan of Treatment Upcoming Encounters Date Type Department Care Team (Late st Contact Info) Description 02/15/2025 1:15 PM EDT Office Visit [facility] [address] [place] [address] Sharda Rich MD [address] [place] [address] documented as of this encounter Visit Diagnoses Diagnosis Uncomplicated opioid dependence (CMS/HCC) documented in this encounter Additional Health Concerns Assessment Noted Time PHQ-9 Depression Total Score: 17 023 1:12 PM EDT documented as of this encounter Care Teams Hotel Front Office Manager Relationship Specialty Start Date End Date Presley Montgomery MD [address] [place] [address] PCP - General Internal Medicine 04/05/20 documented as of this encounter
--- OUTSIDE RECORDS SUMMARY | 2025-01-30 18:14 | XMS_ITS | Encounter Summary ---
Author Organization [employer] Address [address] [facility] 7t [place] [address] Care Team Providers Care Hydrometallurgical Engineer Name Role Phone rPesley [place] MD Primary Care Prov ider Reason for Visit * Reason Comments OBAT Encounter Details Date Type Department Care Team (Latest Contact Info) Description 01/18/2025 2:00 PM EST Office Visit [facility] [address] [place], [place] [phone] Sharda Rich MD [address] [place], [place] [phone] Uncomplicated opioid dependence (CMS/HCC) (Primary Dx); Cocaine use Social History Tobacco Use Types Packs/Day Years Used Date Smoking Tobacco: Every Day Cigarettes Depression Answer Date Recorded Patient Health Questionnaire-9 Score 17 04/13/2023 Housing Stability Answer Date Recorded What is your housing situation today? I have rejijessy white 08/30/[address] you [...] AM EDT documented as of this encounter Last Filed Vital Signs Vital Sign Reading Time Taken Comments Blood Pressure 125/79 01/18/2025 2:38 PM EST Pulse 73 01/18/2025 2:38 PM EST Temperature 36.8 ??C (98.2 ??F) 01/18/2025 2:38 PM ES T Respiratory Rate - - Oxygen Saturation - - Inhaled Oxygen Concentration - - Weight - - Height - - Body Mass Index - - documented in this encounter Progress Notes * Sharda Rich MD - 01/18/2025 2:00 PM EST Patient here for opioid dependence, has been in the OBAT program for 6 yrs 9 months. Intake date: 05/05/18. Current Suboxone dose of 16/4 mg daily with appointments on an 8 week schedule. Behavioral health provider is in [place], psych prescriber Moses Ordoñez. LFTs last done 12/24/22. Last PCP appt 12/31/22. DANA HEDRICK reviewed by provider. Hep A immune. Hep B vaccines completed. COVID vaccinated and boosted. LAST VISIT11/23/24 POS:BUP,PAMELA,AMP,BZO, David is being seen for OBAT services. He is maintaining abstinence from opioids with no cravingsor med side effects. He is using cocaine a few times a week. Feels like he needs some sort of escape. Doesn't have anything to look forward to. He is aware that visit interval may be changed to monthly if cocaine use continues. Just had an intake for services. Has FU scheduled. Still having problems with transportation. Today-01/18/25 POS:BUP,BZO,PAMELA Subjective Patient ID: David Bradley is a 54 y.o. male who presents for OBAT. David is being seen for OBAT services. He is maintaining abstinence from opioids. Continues to use cocaine intermittently, citing stress as a trigger. He is wearing a cast on his right foot r/t chronic wound. He sees wound care tomorrow and is hopingthat the cast will come off. Continues to see his counselor and psych prescriber on a regular basis. Review of Systems Psychiatric/Behavioral: Positive for dysphoric mood. The patient is not nervous/anxious. Objective Physical Exam Constitutional: Appearance: Normal appearance. He is well-developed. Skin: General: Skin is warm and dry. Neurological: General: No focal deficit present. Mental Status: He is alert and oriented to person, place, and time. Mental status is at baseline. Psychiatric: Mood and Affect: Mood normal. Behavior: Behavior normal. Assessment/Plan Diagnoses and all orders for this visit: Uncomplicated opioid dependence ([facility]) Counseling provided RE: importance of multiple sources of support for achieving and maintaining recovery. Counseling RE: harm reduction measures, ie, not using alone, the use of clean needles/equipment, Narcan. Discussed strategies to use when confronted with situations that trigger use. Continue current Suboxone dose. Will change visit interval to four weeks for closer monitoring. - POCT ANA PAULA-14 Urine Drug Screen Cocaine use This information has been disclosed to you from records protected by federal confidentiality rules (42 CFR Part 2). The federal rules prohibit you from making any further disclosure of information inthis record that identifies a patient as having or having had a substance use disorder either directly, by reference to publicly available information, or through verification of such identification by another person unless further disclosure is expressly permitted by the written consent of the individual whose information is being disclosed or as otherwise permitted by (see2.3.1). The federal rules restrict any use of the information to investigate or prosecute with regard to a crime any patient with a substance use disorder, except as provided at 2.12??(5) and 2.65. documented in this encounter Plan of Treatment Upcoming Encounters Date Type Department Care Team (Late st Contact Info) Description 02/15/2025 1:15 PM EDT Office Visit [facility] [address] [place] [phone] Sharda Rich MD [address] [place] [address] documented as of this encounter Procedures Procedure Name Priority Date/Time Associated Diagnosis Comments POCT ANA PAULA-14 URINE DRUG SCREEN Routine 01/18/2025 2:34 PM EST Uncomplicated opioid dependence (CMS/HCC) documented in this encounter Results * POCT ANA PAULA-14 Urine Drug Screen (01/18/2025 2:34 PM EST) THC Negative Cocaine Screen, Urine Positive Opiate [...] CARE TEST ENTER/KOBE T ORDERABLES Final Result documented in this encounter Visit Diagnoses Diagnosis Uncomplicated opioid dependence (CMS/HCC)- Primary Cocaine use documented in this encounter Additional Health Concerns Assessment Noted Time PHQ-9 Depression Total Score: 17 023 1:12 PM EDT documented as of this encounter Care Teams Hydrometallurgical Engineer Relationship Specialty Start Date End Date Presley [place] MD [address] [place] [id number] PCP - General Internal Medicine 04/05/20 documented as of this encounter
--- OUTSIDE RECORDS SUMMARY | 2025-01-30 18:14 | XMS_ITS | Encounter Summary ---
Author Organization [employer] Address [address] [facility] 7t [place] [address] Care Team Providers Care Precision Lens Grinder Apprentice Name Role Phone Presley [place] MD Primary Care Prov ider Reason for Visit * Reason Comments Med Refill Encounter Details Date Type Department Care Team ([facility] st Contact Info) Description 02/10/2024 Refill [facility]S [address] [place], [place] [phone] Sharda Rich MD [address] [place] [address] Uncomplicated opioid dependence (CMS/HCC) Social History Tobacco [...] Description 02/15/2025 1:15 PM EDT Office Visit [facility] MEDICINE [address] [place] [address] Sharda Rich MD [address] [place] [address] documented as of this encounter Visit Diagnoses Diagnosis Uncomplicated opioid dependence (CMS/HCC) documented in this encounter Additional Health Concerns Assessment Noted Time PHQ-9 Depression Total Score: 17 023 1:12 PM EDT documented as of this encounter Care Teams Precision Lens Grinder Apprentice Relationship Specialty Start Date End Date Presley [place] MD [address] [place] [phone] PCP - General Internal Medicine 04/05/20 documented as of this encounter
--- OUTSIDE RECORDS SUMMARY | 2025-01-30 18:14 | XMS_ITS | Encounter Summary ---
Author Organization [employer] Address [address] [facility] 7[address] [place] [address] Care Team Providers Care Notch Machine Operator Name Role Phone Presley [place] MD Primary Care Prov ider Reason for Visit * Reason Onset Date Comments Med Refill 01/18/2025 Encounter Details Date Type Department Care Team ([facility] st Contact Info) Description 01/18/2025 Refill [facility] MEDICINE [address] [place] [address] Sorin Mensah, VALERI [address] [place] [address] Uncomplicated opioid dependence (CMS/HCC) Social History Tobacco [...] Description 02/15/2025 1:15 PM EDT Office Visit [facility] MEDICINE [address] [place] [address] Sharda Rich MD [address] [place] [address] documented as of this encounter Visit Diagnoses Diagnosis Uncomplicated opioid dependence (CMS/HCC) documented in this encounter Additional Health Concerns Assessment Noted Time PHQ-9 Depression Total Score: 17 023 1:12 PM EDT documented as of this encounter Care Teams Notch Machine Operator Relationship Specialty Start Date End Date Presley [place] MD [address] [place] [phone] PCP - General Internal Medicine 04/05/20 documented as of this encounter
--- OUTSIDE RECORDS SUMMARY | 2025-01-30 18:14 | XMS_ITS | Encounter Summary ---
Author Organization [employer] Address [address] [place] [address] [address] [place] [address] Care Team Providers Care School Janitor Name Role Phone Presley [place] MD Primary Care Prov ider Reason for Visit * Reason Onset Date Comments Med Refill 09/01/2023 Encounter Details Date Type Department Care Team ([facility] st Contact Info) Description 09/01/2023 Telephone [facility] [address] [place], [place] [phone] Presley [place] MD [address] [place] [address] Med Refill Social History Tobacco Use Types Packs/Day Years [...] AM EDT documented as of this encounter Miscellaneous Notes * Telephone Encounter - Neena Galicia - 09/01/2023 4:14 PM EDT Tc from pt requesting med refill on sildenafil (Viagra) 100 MG tablet documented in this encounter Plan of Treatment Upcoming Encounters Date Type Department Care Team (Late st Contact Info) Description 02/15/2025 1:15 PM EDT Office Visit [facility] MED[facility] [address] [place] [phone] Sharda Rich MD [address] [place] [address] documented as of this encounter Visit Diagnoses Not on filedocumented in this encounter Additional Health Concerns Assessment Noted Time PHQ-9 Depression Total Score: 17 023 1:12 PM EDT documented as of this encounter Care Teams School Janitor Relationship Specialty Start Date End Date Presley [place] MD [address] [place] [address] PCP - General Internal Medicine 04/05/20 documented as of this encounter
--- OUTSIDE RECORDS SUMMARY | 2025-01-30 18:14 | XMS_ITS | Encounter Summary ---
Author Organization [employer] Address [address] [facility] 7t [place] [address] Care Team Providers Care Ethnology Professor Name Role Phone Presley [place] MD Primary Care Prov ider Encounter Details Date Type Department Care Team (Latest Contact Info) Description 01/18/2025 Travel Social History Tobacco Use Types Packs/Day Years [...] Description 02/15/2025 1:15 PM EDT Office Visit [facility] MED[facility]INE [address] [place], [place] [phone] Sharda Rich MD [address] [place] [address] documented as of this encounter Visit Diagnoses Not on filedocumented in this encounter Additional Health Concerns Assessment Noted Time PHQ-9 Depression Total Score: 17 023 1:12 PM EDT documented as of this encounter Care Teams Ethnology Professor Relationship Specialty Start Date End Date Presley [place] MD [address] [place] [phone] PCP - General Internal Medicine 04/05/20 documented as of this encounter
--- OUTSIDE RECORDS SUMMARY | 2025-01-30 18:14 | XMS_ITS | Encounter Summary ---
Author Organization [employer] Address [address] [place] [address] 7 [place] [address] Care Team Providers Care Accounts Payable Coordinator Name Role Phone Presley Montgomery MD Primary Care Prov ider Encounter Details Date Type Department Care Team (Late st Contact Info) Description 04/30/2023 Orders Only [facility] MED & PEDS [address] [place], [place] [phone] Presley Montgomery MD [address] [place] [address] Social History Tobacco Use Types Packs/Day Years Used Date Smoking Tobacco: Every Day Cigarettes Depression Answer Date Recorded Patient Health Questionnaire-9 Score 17 04/13/2023 Depression Answer Date Recorded Patient Health Questionnaire-2 Score 3 04/13/2023 Sex and Gender Information Value Date Recorded Sex Assigned at Male 09/14/2022 10:25 AM EDT Legal Sex Male 10:25 AM EDT Gender Identity Male 09/14/2022 10:25 AM EDT Sexual Orientation Straight 09/14/2022 10 :25 AM EDT COVID-19 Exposure Response Date Recorded In the last 10 days, have yo u been in contact with someone who was confirmed or suspected to have Coronavirus/COVID-19? No / Unsure 04/15/2023 1:43 PM EDT documented as of this encounter Plan of Treatment Upcoming Encounters Date Type Department Care Team (Late st Contact Info) Description 02/15/2025 1:15 PM EDT Office Visit [facility] MEDICINE [address] [place], [place] [phone] Sharda Rich MD [address] [place], [place] [phone] documented as of this encounter Procedures Procedure Name Priority Date/Time Associated Diagnosis Comments HISTAMINE, PLASMA Routine 05/17/2023 3:3 5 PM EDT VITAMIN D,25-OH,TOTAL,IA Routine 023 3:35 PM EDT VITAMIN B12/FOLATE, SERUM PANEL Routine 05/17/2023 3:35 PM EDT TSH W/REFLEX TO FT4 Routine 05/17/2023 3 :35 PM EDT TISSUE TRANSGLUTAMINASE AB, IGG Routine 05/17/2023 3:35 PM EDT RESPIRATORY ALLERGY PROFILE REGION I Routine 05/17/2023 3:35 PM EDT CBC WITH AUTO DIFFERENTIAL Routine 05/17/2023 3:35 PM EDT TRYPTASE Routine 05/17/2023 3:35 PM EDT ZINC Routine 05/17/2023 3:35 PM EDT VITAMIN A Routine 05/17/2023 3:35 PM EDT VITAMIN C Routine 05/17/2023 3:35 PM EDT FERRITIN Routine 05/17/2023 3:35 PM EDT CALCIUM, IONIZED Routine 05/17/2023 3:35 PM EDT COMPREHENSIVE METABOLIC PANEL Routine 05/17/2023 3:35 PM EDT documented in this encounter Results * Tissue Transglutaminase (tTG) Antibody (IgG) (05/17/2023 3:35 PM EDT) Tissue Transglutaminase Antibody IgG <1.0 U/mL [facility] Comment:Value Interpretation ----- <15.0 Antibody not detected> or = 15.0 Antibody detectedTHIS TEST WAS PERFORMED AT:[facility] [address] [id number] BUSTAMANTE MD 05/17/2023 3:35 PM EDT 05/17/2023 3:35 PM EDT [facility] External Provider LAB BLO OD ORDERABLES Final Result Performing Organization Address [facility]/ZIP Co de Phone Number [facility] [address] [place] [phone] * Respiratory Allergy Profile Region I (05/17/2023 3:35 PM EDT) Rast Allergen SEE NOTE [facility] Comment:SEE SCANNED RESULTS IN EMR 05/17/2023 3:35 PM EDT 05/17/2023 3:35 PM EDT [facility] External Provider LAB BLO OD ORDERABLES Final Result Performing Organization Address [facility] de Phone Number [facility] [address] [place] [phone] * Vitamin C (05/17/2023 3:35 PM EDT) Vitamin C 1.0 0.2 - 2.1 mg/dL [facility] Comment:This test was develo ped and its analytical performancecharacteristics have been determined by [employer]. It has not been cleared or approved by theA. This assay has been validated pursuant to the CLIAregulations and is used for clinical purposes.THIS TEST WAS PERFORMED AT:[facility] [place] [address]BCTVAA MCDONALD,MD 05/17/2023 3:35 PM EDT 05/17/2023 3:35 PM EDT [facility] External Provider LAB BLO OD ORDERABLES Final Result Performing Organization Address City/[facility]/ZIP Co de Phone Number [facility] [address] [place] [phone] * Vitamin A (05/17/2023 3:35 PM EDT) Vitamin A (Retinol) 60 38 - 98 mcg/dL [facility] Comment:Vitamin supplementat ion within 24 hours prior toblood draw may affect the accuracy of the results.This test was developed and its analytical performancecharacteristics have been determined by [employer] [place]. It hasnot been cleared or approved by the U.S. Food and DrugAdministration. This assay has been validated pursuantto the CLIA regulations and is used for clinicalpurposes.THIS TEST WAS PERFORMED AT:[facility]/[employer] [id number] [place] [id number] JUNE MD,PHD 05/17/2023 3:35 PM EDT 05/17/2023 3:35 PM EDT [facility] External Provider LAB BLO OD ORDERABLES Final Result Performing Organization Address City/[facility]/ZIP Co de Phone Number [facility] [address] [place] [phone] * Zinc (05/17/2023 3:35 PM EDT) Zinc 76 60 - 130 mcg/dL [facility] Comment:This test was develo ped and its analytical performancecharacteristics have been determined by [employer] [place]. It hasnot been cleared or approved by the U.S. Food and DrugAdministration. This assay has been validated pursuantto the CLIA regulations and is used for clinicalpurposes.THIS TEST WAS PERFORMED AT:[facility]/[employer] [place] [place] [address]KALGNIWLIZ JUNE MD,PHD 05/17/2023 3:35 PM EDT 05/17/2023 3:35 PM EDT [facility] External Provider LAB BLO OD ORDERABLES Final Result Performing Organization Address [facility] de Phone Number [facility] [address] [place] [phone] * Tryptase (05/17/2023 3:35 PM EDT) Tryptase 5.3 <11.0 mcg/L [facility] Comment:The Tryptase test, f luorescent enzyme immunoassay(FEIA), measures both the Alpha and Beta forms ofTryptase. Measuring both forms of Tryptase increasessensitivity for the diagnosis of mastocytosis, andmast cell degranulation as a cause of anaphylaxis.THIS TEST WAS PERFORMED AT:[facility] [address] [id number] BUSTAMANTE MD 05/17/2023 3:35 PM EDT 05/17/2023 3:35 PM EDT [facility] External Provider LAB BLO OD ORDERABLES Final Result Performing Organization Address [facility] de Phone Number [facility] [address] [place] [phone] * Histamine, Plasma (05/17/2023 3:35 PM EDT) Histamine, Plasma <1.5 < OR = 1.8 ng/mL [facility] Comment:This test was perfor med using a kit that has not beencleared or approved by the FDA. The analytical performancecharacteristics of this test have been determined by [employer] [facility] [place]. This testshould not be used for diagnosis without confirmation byother medically established means.THIS TEST WAS PERFORMED AT:[facility]/[employer] [id number] [place] [address]KWJTQNATASHA WILKINS MD,PHD,COURTNEY 05/17/2023 3:35 PM EDT 05/17/2023 3:35 PM EDT [facility] External Provider LAB BLO OD ORDERABLES Final Result Performing Organization Address [facility] Co de Phone Number [facility] [address] [place] [phone] * Calcium, Ionized (05/17/2023 3:35 PM EDT) Calcium, Ionized 5.0 4.7 - 5.5 mg/dL [facility] Comment:THIS TEST WAS PERFOR MED AT:[employer] [place] [id number] BUSTAMANTE MD 05/17/2023 3:35 PM EDT 05/17/2023 3:35 PM EDT [facility] External Provider LAB BLO OD ORDERABLES Final Result Performing Organization Address [facility] de Phone Number [facility] [address] [place] [phone] * TSH W/Reflex to FT4 (05/17/2023 3:35 PM EDT) TSH reflex Free T4 1.93 0.32 - 4.0 uIU/mL [facility] 05/17/2023 3:35 PM EDT 05/17/2023 3:35 PM EDT [facility] External Provider LAB BLO OD ORDERABLES Final Result Performing Organization Address [facility] Co de Phone Number [facility] [address] [place] [phone] * Vitamin D, 25-Hydroxy, Total, Immunoassay (05/17/2023 3:35 PM EDT) Vitamin D 25-OH Total 42.0 >30 ng/mL [facility] Comment:Health Based Referen ce Values*< 20 ng/mL Vxydqdslm31-10 ng/mL Insufficient> 30 ng/mL Sufficient*Morales GARRIDO. N Engl J Med. 2007;357:266-280Care must be taken in interpreting Vitamin D results fromdifferent laboratories and methodologies. Published datademonstrated that results from patients undergoinghemodialysis may show a negative bias when tested withvarious automated 25-OH vitamin D assays when compared toLC-MS/MS.When testing samples from patients whose predominant form ofVitamin D is Vitamin D2, such as patients receiving VitaminD2 supplementation, results that are subtherapeutic shouldbe confirmed with another method such as LC-MS/MS. 05/17/2023 3:35 PM EDT 05/17/2023 3:35 PM EDT [facility] External Provider LAB BLO OD ORDERABLES Final Result Performing Organization Address [facility] Co de Phone Number [facility] [address] [place] [phone] * Ferritin (05/17/2023 3:35 PM EDT) Pathologist [facility] Ferritin 195 20 - 250 ng/mL [facility] 05/17/2023 3:35 PM EDT 05/17/2023 3:35 PM EDT [facility] External Provider LAB BLO OD ORDERABLES Final Result Performing Organization Address [facility] Co de Phone Number [facility] [address] [place] [phone] * (ABNORMAL) Comprehensive Metabolic Panel (05/17/2023 3:35 PM EDT) [facility] Sodium 141 135 - 145 mmol/L [facility] Potassium 3.9 3.3 - 5.1 mmol/L [facility] Chloride 106 96 - 108 mmol/L [facility] Carbon Dioxide 24 22 - 29 mmol/L [facility] Anion Gap 15 12 - 20 [facility] Urea Nitrogen (BUN) 10 9 - 16 mg/dL [facility] Creatinine, Serum 0.83 0.5 - 1.4 mg/dL [facility] Estimated Glomerular Filt Rate >60 [facility] Comment:NOTE: For -Am erican individuals, multiply the result by 1.210.Chronic Kidney Disease: Estimated GFR < 60 mL/min/1.62t2Mlblvi Kidney Disease: Estimated GFR < 15 mL/min/1.73m2 Glucose 96 60 - 115 mg/dL [facility] Calcium 9.1 8.4 - 10.2 mg/dL [facility] Bilirubin, Total 0.8 0.0 - 1.0 mg/dL [facility] Aspartate Amino Transferase 82(H) 5 - 37 U/L [facility] Alanine Aminotransferase 77(H) 0 - 40 U/L [facility] Total Protein 7.2 6.5 - 8.0 g/dL [facility] Albumin Level 4.3 3.5 - 5.0 g/dL [facility] Alkaline Phosphatase 84 39 - 117 U/L [facility] 05/17/2023 3:35 PM EDT 05/17/2023 3:35 PM EDT [facility] External Provider LAB BLO OD ORDERABLES Final Result [facility] [address] [place] [phone] * Vitamin B12/Folate, Serum Panel (05/17/2023 3:35 PM EDT) Vitamin B12 776 200 - 900 pg/mL [facility] Comment:NORMAL 200-900 PG/ML INDETERMINATE 160-199 PG/ML DEFICIENT < 160 PG/ML Folate >20.0 > or = 4.0 ng/mL [facility] Comment:Reference Values:> o r = 4.0 ng/mL< 4.0 ng/mL suggests folate deficiency Methotrexate, aminopterin and folinic acid(leucovorin) are chemotherapeutic agents whose molecularstructures are similar to folate; therefore, the Architectfolate assay cannot be used for patients using these drugs. 05/17/2023 3:35 PM EDT 05/17/2023 3:35 PM EDT [facility] External Provider LAB BLO OD ORDERABLES Final Result [facility] [address] [place] [phone] * (ABNORMAL) CBC auto differential (05/17/2023 3:35 PM EDT) White Blood Count 6.2 4.8 - 10.8 X10*3/uL [facility] Red Blood Count 3.97(L) 4.60 - 5.80 X10*6/uL [facility] Hemoglobin 13.9(L) 14.0 - 18.0 g/dl [facility] Hematocrit 40.7(L) 42.0 - 52.0 % [facility] Mean Corpuscular Volume 102.5(H) 80.0 - 98.0 fL [facility] Mean Corpuscular Hemoglobin 35.0(H) 27.0 - 33.0 pg [facility] Mean Corpuscular HGB Conc 34.2 31.0 - 36.0 g/dl [facility] Red Cell Distribution Width 14.8 11.0 - 16.0 % [facility] Platelet Count 181 160 - 400 X10*3/uL [facility] Mean Platelet Volume 10.5 9.4 - 12.4 fL [facility] Neutrophils Percent Auto 60.6 45 - 73 % [facility] Imm Gran Pct Auto 4.0(H) 0.0 - 0.4 % [facility] Lymphocytes Percent Auto 21.1 20 - 40 % [facility] Monocytes Percent Auto 8.7 2 - 11 % [facility] Eosinophils Percent Auto 5.0(H) 0 - 4 % [facility] Basophils Percent Auto 0.6 0 - 2 % [facility] NRBC Pct Auto 0.0 0.0 - 0.2 /100WBC [facility] Neutrophils Absolute Auto 3.8 2.0 - 8.3 x10*3/uL [facility] Imm Gran Abs Auto 0.25(H) 0.00 - 0.03 X10*3/uL [facility] Lymphocytes Absolute Auto 1.3 1.2 - 4.9 X10*3/uL [facility] Monocytes Absolute Auto 0.5 0.1 - 1.2 X10*3/uL [facility] Eosinophils Absolute Auto 0.3 0.0 - 0.4 X10*3/uL [facility] Basophils Absolute Auto 0.0 0.0 - 0.2 X10*3/uL [facility] NRBC Abs Auto 0.000 0.0 - 0.012 X10*3/uL [facility] 05/17/2023 3:35 PM EDT 05/17/2023 3:35 PM EDT [facility] External Provider LAB BLO OD ORDERABLES Final Result [facility] [address] [place] [phone] documented in this encounter Visit Diagnoses Not on filedocumented in this encounter Additional Health Concerns Assessment Noted Time PHQ-9 Depression Total Score: 17 023 1:12 PM EDT documented as of this encounter Care Teams Accounts Payable Coordinator Relationship Specialty Start Date End Date Presley Montgomery MD [address] [place] [phone] PCP - General Internal Medicine 04/05/20 documented as of this encounter
--- OUTSIDE RECORDS SUMMARY | 2025-01-30 18:14 | XMS_ITS | Encounter Summary ---
Author Organization [employer] Address [address] [facility] 7 [place] [address] Care Team Providers Care Senior Medical Transcriptionist Name Role Phone Presley Montgomery MD Primary Care Prov ider Reason for Visit * Reason Comments Med Refill Encounter Details Date Type Department Care Team ([facility] st Contact Info) Description 08/30/2024 Refill C [facility] [address] [place], [place] [phone] Presley Montgomery MD [address] [place] [phone] Impotence Social History Tobacco Use Types Packs/Day Years [...] Description 02/15/2025 1:15 PM EDT Office Visit [facility] MEDICINE [address] [place] [phone] Sharda Rich MD [address] [place] [address] documented as of this encounter Visit Diagnoses Diagnosis Impotence Impotence of organic origin documented in this encounter Additional Health Concerns Assessment Noted Time PHQ-9 Depression Total Score: 17 023 1:12 PM EDT documented as of this encounter Care Teams Senior Medical Transcriptionist Relationship Specialty Start Date End Date Presley Montgomery MD [address] [place] [phone] PCP - General Internal Medicine 04/05/20 documented as of this encounter
== END 2025-01-30 15:22 | disposition home or self-care (01) ==
LOC: HO.CT 15:21
PROVIDERS: PCP Internal Medicine; Visit Provider Physician Assistant Medical
DX: Z12.2 Encounter for screening for malignant neoplasm of respiratory organs (principal); F17.210 Nicotine dependence, cigarettes, uncomplicated
CPT/HCPCS: 71271

== ENCOUNTER → 2025-01-30 15:24 | Outpatient (BNV) | payer OTHER, SELFPAY | PROVIDERS: PCP Internal Medicine; Visit Provider Radiology Diagnostic Radiology | DX: F17.210 Nicotine dependence, cigarettes, uncomplicated (principal) | CPT/HCPCS: 71271 ==

== ENCOUNTER 2025-09-27 14:08 | Outpatient (REF) | payer OTHER, SELFPAY ==
--- OUTSIDE RECORDS SUMMARY | 2025-09-26 14:30 | XMS_ITS | Encounter Summary ---
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 * Consultation (Urgent) - Authorized Specialty Diagnoses / Procedures Referred By Dione simms Referred To Contact Podiatry / Orthopaedic Surgery Diagnoses Non-pressure chronic ulcer of other part of right foot limited to breakdown of skin ([facility] V24, [facility] V28) Presley Montgomery [address] [place] [address] Phone: tel: fax: Alan Enrique DPM [address] [address] Phone: tel: fax: Referral ID Status Reason Start Date Expiration Date Visits Requested Visits Authorized [id number] Authorized Specialty Services Required 09/17/2025 09/17/2026 1 1 Encounter Details Date Type Department Care Team (Late st Contact Info) Description 09/26/2025 2:30 PM EST Consult Orthopedic Surgery - [place] [address] [phone] Alan Enrique DPM [address] [address] Bilateral foot pain (Primary Dx); Charcot arthropathy of hindfoot; Hallux extensus, acquired, right; Ulcer of toe of right foot, with fat layer exposed ([facility] V24, [facility] V28) Social History Tobacco Use Types Packs/Day Years Used Date Smoking Tobacco: Never Assessed Sex and Gender Information Value Date Recorded Sex Assigned at Not on file Legal Sex Male 9:52 PM EST Gender Identity Not on file Sexual Orientation Not on file documented as of this encounter Progress Notes * Alan Enrique, ILANM - 09/26/2025 2:30 PM EST Referring MD: Derek Montgomery* Last PCP visit: 09/05/2025 IDENTIFIER: Mirna is a 54 y.o. year old male who presents for consultation. CC: Bilateral foot complication HPI: 54-year-old male dents office with chief complaint of right foot ulceration and left foot swelling.Patient denies trauma to the left foot but notes that it has been increasingly getting more swollenand tight in the day after walking on it hitting his painful and red. Patient has that has been to multiple years of wound care to the right great toe with continued wound developing to the plantar aspect. Patient notes he was casted and the wound did increase resolved. Patient notes that it reopened over a 3-week period of ambulating. ROS: GENERAL: Pt denies nausea, fever, vomiting, chills, or shortness of breath. Pt in NAD. CARDIOLOGY: pt denies chest pain, palpitations LUNGS: pt denies shortness of breath MUSCULOSKELETAL: See HPI, otherwise no joint pain or swelling, back pain, or muscle pain. SKIN: see HPI, otherwise no lesions, rash or itching NEURO: No persistent headache, weakness or numbness The remainder of the review of systems is noncontributory PAST MEDICAL HISTORY: Problem List[1] SOCIAL HISTORY: Social History Tobacco Use Smoking status: Not on file Smokeless tobacco: Not on file Substance Use Topics Alcohol use: Not on file ACTIVE MEDICATIONS: Medications Taking[2] ALLERGIES: Patient has no known allergies. PHYSICAL EXAM: There were no vitals taken for this visit. PODIATRIC EXAMINATION: GENERAL: Patient appears well nourished, with NAD. VASCULAR: Dorsalis pedis pulses are 2/4 bilaterally and Posterior tibial pulses are 2/4 bilaterally. Capillary filling time within normal limits the digits. No pallor on elevation or rubor on dependency. Positive hair growth. No varicosities. Denies rest pain or claudication pain. NEUROLOGICAL: Sharp/dull sensation diminished, protective sensation diminished on [place]. Peripheral neuropathy [bilaterally ORTHOPEDIC: Good muscle strength 5/5 of all flexors and extensors. Dorsi flexion of ankle ,10 degrees, plantar flexion WNL. No muscle atrophy. Severe swelling and redness around the hindfoot of the left lower extremity. Increased extended cysts of the IP joint of the right great toe. Contractures of digits 2 through 5 DERMATOLOGICAL:.No masses or skin lesions noted. Normal skin temperature, normal skin turgor. Ulceration to the plantar aspect of the IP joint of the right great toe with subcutaneous fibrogranular base with regular hyperkeratotic rim. No purulent drainage. BIOMECHANICS: STJ ROM wnl, MTJ ROM wnl, 1st MPJ ROM wnl. IMAGING: Right foot was evaluated showing no fractures or dislocations. There is extension of the IP joint with the distal phalanx dorsiflexed with plantarflexion of the head of the proximal phalanx. Dislocation of the TN joint on lateral view with Charcot arthropathy and complete loss of congruityof the navicular against the cuneiforms. IMPRESSION: 1. Bilateral foot pain 2. Charcot arthropathy of hindfoot 3. Hallux extensus, acquired, right 4. Ulcer of toe of right foot, with fat layer exposed (CMS/HCC V24, CMS/HCC V28) PLAN: Pt was seen and examined, history reviewed. Patient with ulceration to the plantar aspect of the right foot which was debrided and dressed withan offloading pad and dressing. Patient instructed to continue dressing it with DSD daily. Extensive amount of time was taken going over patient's x-rays and describing the deformities and caused the deformities. Patient understands that his neuropathy is what caused the Charcot arthropathy deformity and dislocation of the foot. Patient was placed in a cam boot and instructed to wear thecam boot at all times for ambulatory activity of the left foot. Patient understands that he needs to go through a period of consolidation and coalescence of the breakdown of the joints. Patient was educated that surgery would include removing the broken fractured bone and fusing the medial column. Patient understands it will take 3 to 6 months to heal. Open wound selective debridement of devitalized soft tissue, fibrin, epidermis, dermis, thru skin and subcutaneous tissue, first 20 sq cm or less, using sterile sharp dissection #15 scalpel blade of the right hallux ulcer. Pt. deferred anesthesia. . Devitalized tissue was not sent to pathology. Greater than 45 minutes was spent with patient describing the biomechanics and the pathomechanics of patient's ailments due to the complexity and multitude of such deformities. A considerable amount of time was spent coordinating patient's follow-up care as well as discussing and answering questions related to conservative versus surgical therapy. Patient understands that treatments will include prolonged conservative therapy and possible surgical intervention. Alan Enrique DPM [1] There is no problem list on file for this patient. [2] No outpatient medications have been marked as taking for the 09/26/25 encounter (Consult) with Kristian Enrique DPM. documented in this encounter Plan of Treatment Upcoming Encounters Date Type Department Care Team (Late st Contact Info) Description 10/23/2025 2:45 PM EST Office Visit Orthopedic Surgery - [place] [address] [phone] Alan Enrique DPM [address] [address] documented as of this encounter Results * XR Foot 3+ Views bilat (09/26/2025 3:01 PM EST) Anatomical Region Laterality Modality Lower Extremities, Foot Bilateral Computed Radiography Narrative 09/26/2025 6:42 PM EST Bilateral foot 3 views weightbearing:Right foot was evaluated showing no fractures or dislocations. There is extension of the IP joint with the distal phalanx dorsiflexed with plantarflexion of the head of the proximal phalanx. Dislocation of the TN joint on lateral view with Charcot arthropathy and complete loss of congruity of the navicular against the cuneiforms. us Alan Enrique DPM IMG XR PROCEDURES Final Res ult documented in this encounter Visit Diagnoses Diagnosis Bilateral foot pain- Primary Charcot arthropathy of hindfoot Hallux extensus, acquired, right Ulcer of toe of right foot, with fat layer exposed ([facility] V24, [facility] V28) documented in this encounter Orders Outpatient Referral Count Last Ordered Date Fir st Ordered Date AMB REFERRAL TO PODIATRY 1 09/26/2025 documented in this encounter Care Teams Pharmaceutical Representative Relationship Specialty Start Date End Date Presley Montgomery [address] [place] [phone] PCP - General Internal Medicine 09/17/25 documented as of this encounter
--- OUTSIDE RECORDS SUMMARY | 2025-09-27 13:30 | XMS_ITS | Encounter Summary ---
Author Organization [employer] Address [address] [place] [address] 7 [place] [address] Care Team Providers Care Data Processing Manager Name Role Phone Prelsey Montgomery MD Primary Care Prov ider Reason for Visit * Reason Comments OBAT Encounter Details Date Type Department Care Team (Latest Contact Info) Description 09/27/2025 1:30 PM EST Office Visit [facility] [address] [place], [place] [phone] Sharda Rich MD [address] [place] [address] Uncomplicated opioid dependence (CMS/HCC) (HCC) (Primary Dx); Bipolar 1 disorder (CMS/HCC) (HCC) Social History Tobacco Use Types Packs/Day Years Used Date Smoking Tobacco: Every Day Cigarettes Tobacco Cessation:Ready to Q uit: Not Asked; Counseling Given: Not Answered Depression Answer Date Recorded Patient Health Questionnaire-9 Score 9 09/27/2025 Patient Health Questionnaire-9 Score 9 09/27/2025 Last PHQ-9: Questionnaire Data Not on file 1 11/27/2024 Housing Stability Answer Date Recorded What is your housing situation today? I have reji white 09/27/[address] you li ve. Do you have problems with any of the following? None of the above 09/27/2025 Food Insecurity Answer Date Recorded Within the past 12 months, y ou worried that your food would run out before you got money to buy more: Never True 09/27/2025 Within the past 12 months,th e food you bought just didn't last and you didn't have enough money to get more: Never True Transportation Answer Date Recorded In the past 12 months, has l ack of transportation kept you from medical appts, meetings, work or from getting things needed for daily living? No 09/27/2025 Utilities Answer Date Recorded In the past 12 months, has t he electric, gas, oil or water company threatened to shut off services in your home? No 09/27/2025 Depression Answer Date Recorded Patient Health Questionnaire-2 Score 4 09/27/2025 Internet Access Answer Date Recorded Internet Access Q1 No 09/27/2025 Internet Access Q2 Not on file 09/27/2025 Sex and Gender Information Value Date Recorded Sex Assigned at Male 09/14/2022 10:25 AM EDT Legal Sex Male 10:25 AM EDT Gender Identity Male 09/14/2022 10:25 AM EDT Sexual Orientation Straight 09/14/2022 10 :25 AM EDT documented as of this encounter Functional Status * Over the past 2 weeks, how often have you been bothered by any of the following problems? Question Answer Date of Assessment Author Patient Health Questionnaire -2 Score 4 09/27/2025 1:39 PM Deysi Crowe MA * Little interest or pleasure in doing things Answer Date of Assessment Author More than half the days 09/27/2025 1:39 PM Irina aDvis MA * Feeling down, depressed, or hopeless Answer Date of Assessment Author More than half the days 09/27/2025 1:39 PM Irina Davis MA * Trouble falling or staying asleep, or sleeping too much Answer Date of Assessment Author Several days 09/27/2025 1:39 PM Irina Crowe MA * Feeling tired or having little energy Answer Date of Assessment Author Several days 09/27/2025 1:39 PM Irina Crowe MA * Poor appetite or overeating Answer Date of Assessment Author Several days 09/27/2025 1:39 PM Irina Crowe MA * Feeling bad about yourself - or that you are a failure or have let yourself or your family down Answer Date of Assessment Author Several days 09/27/2025 1:39 PM Irina Crowe MA * Trouble concentrating on things, such as reading the newspaper or watching television Answer Date of Assessment Author Several days 09/27/2025 1:39 PM Irina Crowe MA * Moving or speaking so slowly that other people could have noticed? Or the opposite - being so fidgety or restless that you have been moving around a lot more than usual. Answer Date of Assessment Author Not at all 09/27/2025 1:39 PM Irina Crowe MA * Thoughts that you would be better off or hurting yourself in some way Answer Date of Assessment Author Not at all 09/27/2025 1:39 PM Irina Crowe MA * Patient Health Questionnaire-9 Score Answer Date of Assessment Author 9 09/27/2025 1:39 PM Irina Crowe MA documented as of this encounter Progress Notes * Sharda Rich MD - 09/27/2025 1:30 PM EST Patient here today for OBAT visit. Patient on current buprenorphine-naloxone dose of 16/4 mg on an 8 schedule. Patient has been in the program for 7 years 5 months. Intake date: 05/05/18. LFTs due, ordered. HIV/Hep C screening due, ordered. Hepatitis A immune Hep B vaccines completed. Smoking status 15 cigs/day. Last PCP appt 09/05/25. Patient actively enrolled in behavioral health services, psych prescriber Moses Ordoñez in [place]. DANA PAT reviewed by provider. 08/02/25 TELE VISIT David called for appt today, unable to get here in person today. Reports that he is stone cold sober , but still struggling with his mental health. He does not feel he needs crisis or inpatient services at this time. States he does not want to harm himself or others. Has a psych prescriber, but no therapist. He declines therapy referral, feels he just needs time for this to pass. Reports it ishelpful to talk to OBAT RN and MD. Aware he can always call or come if he wants to talk prior to next visit. He is not unhappy with his living situation at his parents house, they are as supportive as they can be. He will fruit or nut picker Rx in [place] today. TODAY 09/27/25 Subjective Patient ID: David Bradley is a 54 y.o. male who presents for OBAT. David is being seen for OBAT services. He is maintaining abstinence on Suboxone with no cravings or med side effects. Having a hard time. His client, with whom he had been living, suddenly a few months ago. She had also accused him of assault, and he is still facing charges. He is now seeing a inspector of dredging and continues having bilateral foot issues. He is walking with a booton his left foot today. Is facing surgeries to correct anatomical problems in both feet. Feeling down and depressed. Doesn't currently have a therapist and isn't interested right now. No SI. He has tried everything and doesn't really believe in therapy any more. He has a good friend that he talks to almost daily. Living with his parents. Review of Systems Psychiatric/Behavioral: Positive for dysphoric mood. Negative for suicidal ideas. Objective Physical Exam Constitutional: Appearance: Normal appearance. He is well-developed. Skin: General: Skin is warm and dry. Neurological: General: No focal deficit present. Mental Status: He is alert and oriented to person, place, and time. Mental status is at baseline. Psychiatric: Mood and Affect: Mood normal. Behavior: Behavior normal. Assessment/Plan Diagnoses and all orders for this visit: Uncomplicated opioid dependence ([facility]) ([facility]) Counseling provided RE: importance of multiple sources of support for achieving and maintaining recovery. Counseling RE: harm reduction measures, ie, not using alone, the use of clean needles/equipment, Narcan. Discussed strategies to use when confronted with situations that trigger use. Continue current Suboxone dose. Continue visits every 8 weeks. - Hepatitis C Antibody with Reflex to HCV, RNA, Quantitative, Real-Time PCR; Future - HIV-1/2 Antigen and Antibodies, Fourth Generation, with Reflexes; Future - Hepatic Function Panel; Future - POCT ANA PAULA-14 Urine Drug Screen Bipolar 1 disorder ([facility]/HCC) ([facility]) Support provided. This information has been disclosed to you [...] Care Team (Late st Contact Info) Description 2025 1:30 PM EST Office Visit [facility] [address] [place] [address] Sharda Rich MD [address] [place], [place] [phone] Scheduled Orders Name Type Priority Associated Diagnoses Orde r Schedule Hepatitis C Antibody with Reflex to HCV, RNA, Quantitative, Real-Time PCR Lab Routine Uncomplicated opioid dependence (CMS/HCC) (HCC) Expected: 09/27/2025 (Approximate), Expires: 09/27/2026 HIV-1/2 Antigen and Antibodies, Fourth Generation, with Reflexes Lab Routine Uncomplicated opioid dependence (CMS/HCC) (HCC) Expected: 09/27/2025 (Approximate), Expires: 09/27/2026 documented as of this encounter Procedures Procedure Name Priority Date/Time Associated Diagnosis Comments HEPATIC FUNCTION PANEL Routine 09/27/2025 2:12 PM EST Uncomplicated opioid dependence (CMS/HCC) (HCC) POCT ANA PAULA-14 URINE DRUG SCREEN Routine 09/27/2025 1:39 PM EST Uncomplicated opioid dependence (CMS/HCC) (HCC) documented in this encounter Results * (ABNORMAL) Hepatic Function Panel (09/27/2025 2:12 PM EST) Bilirubin, Total 0.4 0.0 - 1.0 mg/dL [facility] Bilirubin, Direct 0.2 0.0 - 0.5 mg/dL [facility] Aspartate Amino Transferase 49(H) 5 - 37 U/L [facility] Alanine Aminotransferase 57(H) 0 - 40 U/L [facility] Total Protein 7.2 6.5 - 8.0 g/dL [facility] Albumin Level 4.5 3.5 - 5.0 g/dL [facility] Alkaline Phosphatase 74 39 - 117 U/L [facility] Blood Venous blood specimen / Unknown 09/27/2025 2:12 PM EST 09/27/2025 4:07 PM EST Sharda Rich MD LAB BLOOD ORDERABLES Final R esult Performing Organization Address City/State/[facility] Co de Phone Number [facility] [address] [place] [address] [phone] * (ABNORMAL) POCT ANA PAULA-14 Urine Drug Screen (09/27/2025 1:39 PM EST) THC Negative Negative Cocaine Screen, Urine Negative Negative Opiate Screen, Urine Negative Negative Methamphetamine Screen Urine Negative Negative Amphetamine Screen, Urine Negative Negative Benzodiazepines Screen, Urine Positive(A) Negative Barbiturate Screen, Urine Negative Negative Methadone Screen, Urine Negative Negative Buprenophine Screen, Urine Positive(A) Negative TCA, Urine Negative Negative MDMA Urine Negative Negative ng/mL Oxycodone Screen, Urine Negative Negative Phencyclidine (PCP), Urine Negative Negative Fentanyl, Urine Negative Negative Urine Urine specimen obtained by clean catch procedure / Unknown 09/27/2025 1:39 PM EST Sharda Rich MD POINT OF CARE TEST ENTER/KOBE T ORDERABLES Final Result documented in this encounter Visit Diagnoses Diagnosis Uncomplicated opioid dependence (CMS/HCC) (HCC)- Primary Bipolar 1 disorder (CMS/HCC) (HCC) documented in this encounter Additional Health Concerns Assessment Noted Time PHQ-9 Depression Total Score: 9 09/27/20 25 1:39 PM EST documented as of this encounter Care Teams Data Processing Manager Relationship Specialty Start Date End Date Presley Montgomery MD [address] [place], [place] [address], [place] [address] PCP - General Internal Medicine 04/05/20 documented as of this encounter
[2025-09-27 16:45] LABS: Alanine Aminotransferase 57 U/L (0-40); Albumin Level 4.5 g/dL (3.5-5.0); Alkaline Phosphatase 74 U/L (39-117); Aspartate Amino Transferase 49 U/L (5-37); Total Protein 7.2 g/dL (6.5-8.0)
--- OUTSIDE RECORDS SUMMARY | 2025-09-27 17:31 | XMS_ITS | Encounter Summary ---
Author Organization [employer] Address [address] [facility] 7 [place] [address] Care Team Providers Care Electrician Maintenance Name Role Phone Presley Montgomery MD Primary Care Prov ider Reason for Visit * Reason Comments Med Refill Encounter Details Date Type Department Care Team ([facility] st Contact Info) Description 08/23/2025 Refill [facility] [address] [place], [place] [phone] Presley Montgomery MD [address] [place], [place] [phone] Impotence Social History Tobacco Use Types Packs/Day [...] Description 2025 1:30 PM EST Office Visit [facility] [address] [place] [address] Sharda Rich MD [address] [place] [address] documented as of this encounter Visit Diagnoses Diagnosis Impotence Impotence of organic origin documented in this encounter Additional Health Concerns Assessment Noted Time PHQ-9 Depression Total Score: 17 023 1:12 PM EDT documented as of this encounter Care Teams Electrician Maintenance Relationship Specialty Start Date End Date Presley Montgomery MD [address] [place] [address] PCP - General Internal Medicine 04/05/20 documented as of this encounter
--- OUTSIDE RECORDS SUMMARY | 2025-09-27 17:31 | XMS_ITS | Encounter Summary ---
Author Organization [employer] Address [address] [facility] 7 [place] [address] Care Team Providers Care Compressed Gas Plant Worker Name Role Phone Presley Montgomery MD Primary Care Prov ider Reason for Visit * Reason Onset Date Comments Med Refill 08/28/2025 Encounter Details Date Type Department Care Team ([facility] st Contact Info) Description 08/28/2025 Telephone [facility] [address] [place] [address] Presley Montgomery MD [address] [place] [address] Med Refill Social History Tobacco Use Types [...] t he electric, gas, oil or water [employer] threatened to shut off services in your [...] encounter Miscellaneous Notes * Telephone Encounter - Aleena Capellan LPN - 08/28/2025 2:39 PM EDT Medication not pended last PCP visit 03/03/23 please review and advise. * Telephone Encounter - Oziel Palomo - 08/28/2025 2:36 PM EDT TC from pt requesting medication refill. Medications needing refill : sildenafil (Viagra) 100 MG tablet To be sent to: [facility] - [place], [place] - [address] [place] [address] documented in this encounter Plan of Treatment Upcoming Encounters Date Type Department Care Team (Late st Contact Info) Description 2025 1:30 PM EST Office Visit [facility] [address] [place] [address] Sharda Rich MD [address] [place] [address] documented as of this encounter Visit Diagnoses Not on filedocumented in this encounter Additional Health Concerns Assessment Noted Time PHQ-9 Depression Total Score: 17 023 1:12 PM EDT documented as of this encounter Care Teams Compressed Gas Plant Worker Relationship Specialty Start Date End Date Presley Montgomery MD [address] [place] [address] PCP - General Internal Medicine 04/05/20 documented as of this encounter
--- OUTSIDE RECORDS SUMMARY | 2025-09-27 17:31 | XMS_ITS | Encounter Summary ---
Author Organization [email or web address] Address [address] [facility] 7 [place] [address] Care Team Providers Care Stunt Performer Name Role Phone Presley Montgomery MD Primary Care Prov ider Reason for Visit * Reason Comments Med Refill Encounter Details Date Type Department Care Team ([facility] st Contact Info) Description 02/15/2025 Refill [facility] [address] [place], [place] [phone] Presley Montgomery MD [address] [place], [place] [phone] Impotence Social History Tobacco Use Types Packs/Day [...] Description 2025 1:30 PM EST Office Visit [facility] [address] [place] [address] Sharda Rich MD [address] [place] [address] documented as of this encounter Visit Diagnoses Diagnosis Impotence Impotence of organic origin documented in this encounter Additional Health Concerns Assessment Noted Time PHQ-9 Depression Total Score: 17 023 1:12 PM EDT documented as of this encounter Care Teams Stunt Performer Relationship Specialty Start Date End Date Presley Montgomery MD [address] [place] [address] PCP - General Internal Medicine 04/05/20 documented as of this encounter
--- OUTSIDE RECORDS SUMMARY | 2025-09-27 17:31 | XMS_ITS | Encounter Summary ---
Author Organization [employer] Address [address] [facility] 7t [place] [address] Care Team Providers Care Hod Carrier Name Role Phone Presley Montgomery MD Primary Care Prov ider Reason for Visit * Reason Comments Med Refill Encounter Details Date Type Department Care Team ([facility] st Contact Info) Description 02/10/2024 Refill [facility] MED & PEDS [address] [place] [address] Sharda Rich MD [address] [place] [address] Uncomplicated opioid dependence (CMS/HCC) Social History Tobacco [...] the past 12 months, has t he [employer], [employer], oil or water company threatened to shut [...] Description 2025 1:30 PM EST Office Visit [facility] MEDICINE [address] [place], [place] [phone] Sharda Rich MD [address] [place] [address] documented as of this encounter Visit Diagnoses Diagnosis Uncomplicated opioid dependence (CMS/HCC) (HCC) documented in this encounter Additional Health Concerns Assessment Noted Time PHQ-9 Depression Total Score: 17 023 1:12 PM EDT documented as of this encounter Care Teams Hod Carrier Relationship Specialty Start Date End Date Presley Montgomery MD [address] [place] [address] PCP - General Internal Medicine 04/05/20 documented as of this encounter
--- OUTSIDE RECORDS SUMMARY | 2025-09-27 17:31 | XMS_ITS | Encounter Summary ---
Author Organization [employer] Address [address] [facility] 7 [place] [address] Care Team Providers Care Cardiovascular Or Nurse Name Role Phone Presley Montgomery MD Primary Care Prov ider Reason for Visit * Reason Onset Date Comments Med Refill 09/01/2023 Encounter Details Date Type Department Care Team ([facility] st Contact Info) Description 09/01/2023 Telephone [facility] CHC MED & PEDS [address] [place] [address] Presley Montgomery MD [address] [place] [address] Med Refill Social History Tobacco Use Types [...] t he electric, gas, oil or water [employer] threatened to shut off services in your [...] Description 2025 1:30 PM EST Office Visit [facility] MEDICINE [address] [place] [address] Sharda Rich MD [address] [place] [address] documented as of this encounter Visit Diagnoses Not on filedocumented in this encounter Additional Health Concerns Assessment Noted Time PHQ-9 Depression Total Score: 17 023 1:12 PM EDT documented as of this encounter Care Teams Cardiovascular Or Nurse Relationship Specialty Start Date End Date Presley Montgomery MD [address] [place] [address] PCP - General Internal Medicine 04/05/20 documented as of this encounter
--- OUTSIDE RECORDS SUMMARY | 2025-09-27 17:31 | XMS_ITS | Encounter Summary ---
Author Organization [employer] Address [address] [facility] 7 [place] [address] Care Team Providers Care Dental Nurse Name Role Phone Presley Montgomery MD Primary Care Prov ider Reason for Visit * Reason Onset Date Comments Med Refill 08/23/2025 Encounter Details Date Type Department Care Team ([facility] st Contact Info) Description 08/23/2025 Telephone [facility] CHC MED & PEDS [address] [place] [address] Presley Montgomery MD [address] [place] [address] Med Refill Social History Tobacco Use Types [...] t he electric, gas, oil or water [employer] threatened to shut off services in your [...] encounter Miscellaneous Notes * Telephone Encounter - Elsy Box LPN - 08/23/2025 4:19 PM EDT Medication not pended last PCP visit 03/03/23 please review and advise. * Telephone Encounter - eKshav Rosa - 08/23/2025 4:11 PM EDT TC from pt requesting medication refill. Medications needing refill : sildenafil (Viagra) 100 MG tablet To be sent to: [facility] - [place], [place] - [address] Pt requesting for med refill to be sent urgently. Pt needs medication by weekend. documented in this encounter Plan of Treatment Upcoming Encounters Date Type Department Care Team (Late st Contact Info) Description 2025 1:30 PM EST Office Visit [facility] MEDICINE [address] [place] [address] Sharda Rich MD [address] [place] [address] documented as of this encounter Visit Diagnoses Not on filedocumented in this encounter Additional Health Concerns Assessment Noted Time PHQ-9 Depression Total Score: 17 023 1:12 PM EDT documented as of this encounter Care Teams Dental Nurse Relationship Specialty Start Date End Date Presley Montgomery MD [address] [place] [address] PCP - General Internal Medicine 04/05/20 documented as of this encounter
--- OUTSIDE RECORDS SUMMARY | 2025-09-27 17:31 | XMS_ITS | Encounter Summary ---
Author Organization [employer] Address [address] [facility] 7 [place] [address] Care Team Providers Care Lime Vat Tender Name Role Phone Presley Montgomery MD Primary Care Prov ider Reason for Visit * Reason Comments Med Refill Encounter Details Date Type Department Care Team ([facility] Contact Info) Description 08/30/2024 Refill [facility] CHC MED & PEDS [address] [place], [place] [phone] Presley Montgomery MD [address] [place] [address] Impotence Social History Tobacco Use Types Packs/Day [...] Description 2025 1:30 PM EST Office Visit [facility] MEDICINE [address] [place] [address] Sharda Rich MD [address] [place] [address] documented as of this encounter Visit Diagnoses Diagnosis Impotence Impotence of organic origin documented in this encounter Additional Health Concerns Assessment Noted Time PHQ-9 Depression Total Score: 17 023 1:12 PM EDT documented as of this encounter Care Teams Lime Vat Tender Relationship Specialty Start Date End Date Presley Montgomery MD [address] [place] [address] PCP - General Internal Medicine 04/05/20 documented as of this encounter
--- OUTSIDE RECORDS SUMMARY | 2025-09-27 17:32 | XMS_ITS | Clinical Summary ---
Author Organization [employer] Address [address] [facility] 7t [place] [address] Care Team Providers Care Telegraph Repeater Technician Name Role Phone Presley Montgomery MD Primary [...] mouth in the morning. 09/27/20 23 Active tadalafil (Cialis) 10 MG tablet Take 1 tablet (10 mg) by mouth if needed each day for erectile dysfunction. 30 tablet 1 09/05/20 25 025 Active Buprenorphine HCl-Naloxone HCl (Suboxone) 8-2 MG SL filmIndicatio ns:Uncomplica alexander opioid dependence (CMS/HCC) (HCC) Place 2 Film under the tongue Once per day. 56 Film 1 5 2:55 PM EST 09/20/20 25 026 Active sildenafil (Viagra) 100 MG tabletIndicat ions:Impotenc e TAKE 1 TABLET 1 HOUR BEFORE SEXUAL RELATIONS ONCE DAILY NEEDED. 30 tablet 02/20/20 25 025 Discontinued sildenafil (Viagra) 100 MG tabletIndicat ions:Impotenc e TAKE 1 TABLET 1 HOUR BEFORE SEXUAL RELATIONS ONCE DAILY NEEDED. 30 tablet 02/20/20 25 025 Discontinued Buprenorphine HCl-Naloxone HCl (Suboxone) 8-2 MG SL filmIndicatio ns:Uncomplica alexander opioid dependence ([facility]) ([facility]) Place 2 Film under the tongue Once per day. 56 Film 1 07/24/20 25 025 Discontinued(Re order (will not trigger notification to Pharmacy)) tadalafil (Cialis) 10 MG tablet Take 1 tablet (10 mg) by mouth if needed each day for erectile dysfunction. 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 PLAN: 1. Follow up with [facility]: Not recommended for follow-up , encouraged to reach out for support as needed. 2. Patient goal is to become mentally stable and avoid self medicating with alcohol. 3. Behavioral Recommendations a. Ind. Therapy b. Mems Device Scientist c. Reach out [facility] as needed for extra support. 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 Given copy and faxed to psych provider. Recommended f/up with PCP for other concerns. Assessment & Plan (01/28/2023 4:56 PM EDT): Followed by psych, denied suicidal/homicidal ideas, no recent exacerbation, follow psych reccomendations Hepatic cirrhosis (CMS/HCC) 11/26/2022 Overview (11/26/2022): Secondary to alcohol abuseCT [...] screening Peripheral nerve disease 01/08/2022 Stimulant dependence (CMS/HCC) 09/23/2017 Encounters Date Type Department Care Team Description 09/27/2025 1:30 PM EST Office Visit [facility] MEDICINE [address] [place] [address] Sharda Rich MD Uncomplicated opioid dependence (CMS/HCC) (HCC) (Primary Dx); Bipolar 1 disorder (CMS/HCC) (HCC) 09/18/2025 Refill [facility] MEDICINE [address] [place] [address] Sharda Rich MD Uncomplicated opioid dependence (CMS/HCC) (HCC) 09/13/2025 Orders Only [facility] CHC MED & PEDS [address] [place] [address] Presley Montgomery MD Ulcer of right foot, limited to breakdown of skin (CMS/HCC) (HCC) (Primary Dx) 09/05/2025 11:30 AM EDT Office Visit [facility] [address] [place] [address] Presley Montgomery MD Ulcer of right foot, limited to breakdown of skin (CMS/HCC) (HCC) (Primary Dx); Penis pain 09/05/2025 Travel 08/30/2025 Refill [facility] [address] [place] [address] Presley Montgomery MD Impotence 08/28/2025 Telephone [facility] [address] [place] [address] Presley Montgomery MD Med Refill 08/28/2025 Patient Outreach [facility] MED[facility]INE [address] [place] [address] Presley Montgomery MD Pre-visit Planning (Pre visit planning LVM ) 08/24/2025 Telephone [facility] [address] [place] [address] Presley Montgomery MD chart prep 08/23/2025 Refill [facility] [address] [place] [address] Presley Montgomery MD Impotence 08/23/2025 Telephone [facility] [address] [place] [address] Presley Montgomery MD Med Refill 08/02/2025 1:30 PM EDT Telemedicine [facility] MEDICINE [address] [place] [address] Sorin Mensah RN Uncomplicated opioid dependence (CMS/HCC) 08/02/2025 Travel 08/01/[address] [address] Sorin Mensah RN 07/24/[address] [address] Sharda Rich MD Uncomplicated opioid dependence ([facility]) from Last 3 Months Immunizations Immunization Administration Dates Next Due Hep A / [...] Sign Reading Time Taken Comments Blood Pressure 112/76 09/05/2025 11:53 AM EDT Pulse 66 09/05/2025 11:53 AM EDT Temperature 36.9 C (98.4 F) 09/05/2025 11:53 AM EDT Respiratory Rate 20 09/05/2025 11:53 AM EDT Oxygen Saturation - - Inhaled Oxygen Concentration - - Weight 103 kg (228 lb) 09/05/2025 11:53 AM EDT Height 182.9 cm (6') 09/05/2025 11:53 AM EDT Body Mass Index 30.92 09/05/2025 11:53 AM EDT Plan of Treatment Upcoming Encounters Date Type Department Care Team (Late st Contact Info) Description 2025 1:30 PM EST Office Visit [facility] MEDICINE [address] [place] [address] Sharda Rich MD [address] [place] [address] Health Maintenance Due Date Last Done Comments CT Colonography 1969 FIT DNA/Cologuard 1969 FIT 1969 FOBT 1969 Sigmoidoscopy 1969 Disability Screening 1969 Hepatitis A Vaccines (4 of 4 - Hep A Twinrix risk 4-dose series) 07/28/2012 01/21/2012, 09/01/2011, 07/28/2011 Pneumococcal Vaccine: 50+ Years (2 of 2 - PCV) 08/11/2017 08/11/2016 RSV Patients and Patients Aged 60 years or older (1 - Risk 50-74 years 1-dose series) 2019 Zoster Vaccines (2 of 2) 01/21/2024 11/26/2023 COVID-19 Vaccine ( season) 2025 11/02/2023, 10/28/2022, 03/24/2022, Additional history exists Influenza Vaccine (#1) 2025 , 09/01/2022, 08/19/2021, Additional history exists Depression Monitoring 03/27/2026 09/27/2025, 025 Alcohol/Substance Use Screening 09/27/2026 09/27/2025 SDOH Screening 09/27/2026 09/27/2025 Tobacco Screening 09/27/2026 09/27/2025 Lipid Panel 03/25/2027 03/25/2022 DTaP/Tdap/Td Vaccines (2 - Td or Tdap) 08/30/2028 08/30/2018, 02/12/2009 Colonoscopy 09/16/2030 09/16/2020 Colorectal Cancer Screening 09/16/2030 Hepatitis B Vaccines Completed 04/06/2019, 10/27/2018, 09/01/2018, [...] patient's age to complete this topic Meningococcal B Vaccine Aged Out No l onger eligible based on patient's age to complete [...] PM EST Uncomplicated opioid dependence (CMS/HCC) (HCC) AMB REFERRAL TO PODIATRY Routine 09/26/2025 Ulcer of right foot, limited to breakdown of skin (CMS/HCC) (HCC) HEPATITIS C AB W/REFL TO HCV RNA, QN, PCR Routine 12/24/2022 12:26 PM EST Opioid use disorder HIV 1/2 ANTIGEN/ANTIBODY, FOURTH GENERATION W/RFL Routine 12/24/2022 12:26 PM EST Opioid use disorder LIPID PANEL, STANDARD Routine 03/25/2022 1:46 PM EDT HM COLONOSCOPY Routine 09/16/2020 from Last 3 Months or Most Recently Relevant to Health Maintenance Results * (ABNORMAL) Hepatic Function Panel (09/27/2025 2:12 PM EST) Bilirubin, Total 0.4 0.0 - 1.0 mg/dL [facility] Bilirubin, Direct 0.2 0.0 - 0.5 mg/dL [facility] Aspartate Amino Transferase 49(H) 5 - 37 U/L [facility] Alanine Aminotransferase 57(H) 0 - 40 U/L [facility] Total Protein 7.2 6.5 - 8.0 g/dL [facility] Albumin Level 4.5 3.5 - 5.0 g/dL [facility] Alkaline Phosphatase 74 39 - 117 U/L [facility] Blood Venous blood specimen / Unknown 09/27/2025 2:12 PM EST 09/27/2025 4:07 PM EST us Sharda Rich MD LAB BLOOD ORDERABLES Final R esult [facility] [address] [place] [phone] * (ABNORMAL) POCT ANA PAULA-14 Urine [...] TEST ENTER/KOBE T ORDERABLES Final Result * Referral to Podiatry (09/26/2025) Presley Mclaughlin MD OUTPATIENT REFERRA L ORDERABLES Final Result * Hepatitis C Antibody with Reflex to HCV, RNA, Quantitative, Real-Time PCR (12/24/2022 12:26 PM EST) Pathologist [facility] Hepatitis C Antibody NON-REACT DAVID NON-REACT DAVID Scientific Intake Index 0.02 <1.00 Scientific Intake Comment: HCV antibody was non-reactive. There is no laboratory evidence of HCV infection. In most cases, no further action is required. However, if recent HCV exposure is suspected, a test for HCV RNA (test code 89165) is suggested. For additional information please refer to http://education.[employer]/faq/SCH98z9 (This link is being provided for informational/ educational purposes only.) Blood Venous blood specimen / Unknown 12/24/2022 12:26 PM EST 12/24/2022 12:27 PM EST Narrative [facility] - 12/25/2022 2:10 AM EST FASTING:NO FASTING: NO Sharda Rich MD LAB BLOOD ORDERABLES Final R esult [address], [place] [address] [facility] [address] [facility], ([address]) [place] [address] * HIV-1/2 Antigen and Antibodies, Fourth Generation, with Reflexes (12/24/2022 12:26 PM EST) [facility] HIV Antigen/Antibody, 4th Generation NON-REAC TIVE NON-REAC TIVE [facility] Comment: HIV-1 antigen and HIV-1/HIV-2 antibodies were not detected. There is no laboratory evidence of HIV infection. PLEASE NOTE: This information has been disclosed to you from records whose confidentiality may be protected by state law. If your state requires such protection, then the state law prohibits you from making any further disclosure of the information without the specific written consent of the person to whom it pertains, or as otherwise permitted by law. A general authorization for the release of medical or other information is NOT sufficient for this purpose. For additional information please refer to http://education.[employer]/faq/VBU762 (This link is being provided for informational/ educational purposes only.) The performance of this assay has not been clinically validated in patients less than 2 years old. Blood Venous blood specimen / Unknown 12/24/2022 12:26 PM EST 12/24/2022 12:27 PM EST Narrative [facility] - 12/25/2022 2:10 AM EST FASTING:NO FASTING: NO Sharda Rich MD LAB BLOOD ORDERABLES Final R esult [address], [place] [address] [facility] [address] [facility], (Nl[address]) [place] [address] * (ABNORMAL) LIPID PANEL, STANDARD (03/25/2022 1:46 PM EDT) [facility] Chol/HDLC Ratio 3.9 <5.0 (calc) [facility] Cholesterol, Total 187 <200 mg/dL [facility] HDL Cholesterol 48 > OR = 40 mg/dL [facility] LDL Cholesterol 122(H) mg/dL (calc) [facility] Comment: Reference range: <100 Desirable range <100 mg/dL for primary prevention; <70 mg/dL for patients with CHD or diabetic patients with > or = 2 CHD risk factors. LDL-C is now calculated using the Mani calculation, which is a validated novel method providing better accuracy than the Friedewald equation in the estimation of LDL-C. Red SS et al. ROSALEE. 2013;310(19): 0465-6637 (http://education.[employer]/faq/FAG410) Non-HDL Cholesterol 139(H) <130 mg/dL (calc) [facility] Comment: For patients with diabetes plus 1 major ASCVD risk factor, treating to a non-HDL-C goal of <100 mg/dL (LDL-C of <70 mg/dL) is considered a therapeutic option. Triglycerides 78 <150 mg/dL [facility] 03/25/2022 1:46 PM EDT Presley Mclaughlin MD LAB BLOOD ORDERABL ES Final Result [facility] [address] * Colonoscopy (09/16/2020) Colonoscopy Normal Normal Historical Provider HEALTH MAINTENANCE Final Result from Last 3 Months or Most Recently Relevant to Health Maintenance Insurance [facility] ONE CARE < [address] [place] [id number] Care Teams Telegraph Repeater Technician Relationship Specialty Start Date End Date Del RioPresley Whyte MD [address] [place] [address] [place] [phone] PCP - General Internal Medicine 04/05/20
--- OUTSIDE RECORDS SUMMARY | 2025-09-27 17:32 | XMS_ITS | Clinical Summary ---
Author Organization [address] [facility] Address [address] [place] [address] Phone Care Team Providers Care Harmonica Maker Name Role Phone Presley Montgomery Primary Care Provide r Allergies No known active allergies Medications No known medications Encounters Date Type Department Care Team Description 09/26/2025 2:30 PM EST Consult Orthopedic [facility] [address] [phone] Alan Enrique DPM Bilateral foot pain (Primary Dx); Charcot arthropathy of hindfoot; Hallux extensus, acquired, right; Ulcer of toe of right foot, with fat layer exposed (CMS/HCC V24, CMS/HCC V28) from Last 3 Months Social History Tobacco Use Types Packs/Day Years Used Date Smoking Tobacco: Never Assessed Sex and Gender Information Value Date Recorded Sex Assigned at Not on file Legal Sex Male 9:52 PM EST Gender Identity Not on file Sexual Orientation Not on file Plan of Treatment Upcoming Encounters Date Type Department Care Team ([facility] st Contact Info) Description 10/23/2025 2:45 PM EST Office Visit Orthopedic Surgery [facility] [address] [phone] Alan Enrique DPM [address] [address] Health Maintenance Due Date Last Done Comments Colorectal Cancer Screening: Colonoscopy 1969 Hepatitis A Vaccines (4 of 4 - Hep A Twinrix risk 4-dose series) 07/28/2012 01/21/2012, 09/01/2011, 07/28/2011 Pneumococcal Vaccine: 50+ Years (2 of 2 - PCV) 2019 08/11/2016 RSV Immunization Adult Patients (1 - Risk 50-74 years 1-dose series) 2019 Zoster Vaccines (2 of 2) 01/21/2024 11/26/2023 Depression Screening 11/15/2024 COVID-19 Vaccine ( - season) 2025 11/02/2023, 10/28/2022, 03/24/2022, Additional history exists Influenza Vaccine (#1) 2025 3, 09/01/2022, 08/19/2021, Additional history exists Medicare Annual Wellness Visit 09/17/2025 Social Influencers of Health Screening 09/17/2025 Cholesterol Screening (Lipid Panel) 03/25/2027 03/25/2022 DTaP,Tdap,and Td Vaccines (2 - Td or Tdap) 08/30/2028 08/30/2018 Hepatitis B Vaccines Completed 04/06/2019, 10/27/2018, 09/01/2018, [...] on patient's age to complete this topic MMR Vaccines Aged Out No longer eligi ble based on patient's age to complete this topic Meningococcal ACWY Vaccine Aged Out N o longer eligible based on patient's age to complete this topic Meningococcal B Vaccine Aged Out No l onger eligible based on patient's age to complete this topic RSV Immunization Patients Under 20 months Aged Out No longer eligible based on patient's age to complete this topic Varicella Vaccines Aged Out No longer eligible based on patient's age to complete this topic Procedures Procedure Name Priority Date/Time Associated Diagnosis Comments XR FOOT 3+ VIEWS BILAT Routine 09/26/2025 3:01 PM EST Bilateral foot pain from Last 3 Months Results * XR Foot 3+ Views bilat [...] DPM IMG XR PROCEDURES Final Res ult from Last 3 Months Insurance [place] [id number] [employer] MEDICARE Member Subscriber Plan / Payer (Ef fective 2024-Present) Name:DAVID NAYAK Relation to Subscriber:Self Name:David Nayak Payer ID:[id number] Group ID:[id number] Type:Not on file Address: [place] [address] [place] [id number] Care Teams Harmonica Maker Relationship Specialty Start Date End Date Presley Montgomery [address] [facility] [place] [address] PCP - General Internal Medicine 09/17/25
--- OUTSIDE RECORDS SUMMARY | 2025-09-27 17:32 | XMS_ITS | Encounter Summary ---
Author Organization [employer] Address [address] [place] [address] 7 [place] [address] Care Team Providers Care Superintendent Drilling Name Role Phone Presley Montgomery MD Primary Care Prov ider Encounter Details Date Type Department Care Team (Late Contact Info) Description 04/30/2023 Orders Only [facility] CHC MED & PEDS [address] [place], [place] [phone] Presley Montgomery MD [address] [place] [address] Social History Tobacco Use Types Packs/Day Years [...] Description 2025 1:30 PM EST Office Visit [facility] MEDICINE [address] [place], [place] [phone] Sharda Rich MD [address] [place] [address] documented as of this encounter Procedures Procedure [...] EDT) Tissue Transglutaminase Antibody IgG <1.0 U/mL [facility] Comment:Value Interpretation ----- <15.0 Antibody not detected> or = 15.0 Antibody detectedTHIS TEST WAS PERFORMED AT:[employer] [address] [id number] BUSTAMANTE MD 05/17/2023 3:35 PM EDT 05/17/2023 3:35 PM EDT [facility] External Provider LAB BLO OD ORDERABLES Final Result Performing Organization Address City/[facility]/ZIP Co de Phone Number [facility] [address] [place] [phone] * Respiratory Allergy Profile Region I (05/17/2023 3:35 PM EDT) Rast Allergen SEE NOTE [facility] Comment:SEE SCANNED RESULTS IN EMR 05/17/2023 3:35 PM EDT 05/17/2023 3:35 PM EDT [facility] External Provider LAB BLO OD ORDERABLES Final Result Performing Organization Address [facility] Co de Phone Number [facility] [address] [place] [phone] * Vitamin C (05/17/2023 3:35 PM EDT) Vitamin C 1.0 0.2 - 2.1 mg/dL [facility] Comment:This test was develo ped and its analytical performancecharacteristics have been determined by [employer]. It has not been cleared or approved by theA. This assay has been validated pursuant to the CLIAregulations and is used for clinical purposes.THIS TEST WAS PERFORMED AT:[id number] [place] [address]YZKNTM MCDONALD,MD 05/17/2023 3:35 PM EDT 05/17/2023 3:35 PM EDT [facility] External Provider LAB BLO OD ORDERABLES Final Result Performing Organization Address [facility] Co de Phone Number [facility] [address] [place] [phone] * Vitamin A (05/17/2023 3:35 PM EDT) Vitamin A (Retinol) 60 38 - 98 mcg/dL [facility] Comment:Vitamin supplementat ion within 24 hours prior toblood draw may affect the accuracy of the results.This test was developed and its analytical performancecharacteristics have been determined by [employer] [place], [place]. It hasnot been cleared or approved by the U.S. Food and DrugAdministration. This assay has been validated pursuantto the CLIA regulations and is used for clinicalpurposes.THIS TEST WAS PERFORMED AT:[employer] [id number] [place] [address]PUPWMGRLIZ JUNE MD,PHD 05/17/2023 3:35 PM EDT 05/17/2023 3:35 PM EDT [facility] External Provider LAB BLO OD ORDERABLES Final Result Performing Organization Address [facility] Co de Phone Number [facility] [address] [place] [phone] * Zinc (05/17/2023 3:35 PM EDT) Zinc 76 60 - 130 mcg/dL [facility] Comment:This test was develo ped and its analytical performancecharacteristics have been determined by [employer] [place], [place]. It hasnot been cleared or approved by the U.S. Food and DrugAdministration. This assay has been validated pursuantto the CLIA regulations and is used for clinicalpurposes.THIS TEST WAS PERFORMED AT:[employer] [id number] [place] [address]EAGOJKYLIZ JUNE MD,PHD 05/17/2023 3:35 PM EDT 05/17/2023 3:35 PM EDT [facility] External Provider LAB BLO OD ORDERABLES Final Result Performing Organization Address [facility] de Phone Number [facility] [address] [place] [phone] * Tryptase (05/17/2023 3:35 PM EDT) Tryptase 5.3 <11.0 mcg/L [facility] Comment:The Tryptase test, f luorescent enzyme immunoassay(FEIA), measures both the Alpha and Beta forms ofTryptase. Measuring both forms of Tryptase increasessensitivity for the diagnosis of mastocytosis, andmast cell degranulation as a cause of anaphylaxis.THIS TEST WAS PERFORMED AT:[employer] [address] [id number] BUSTAMANTE MD 05/17/2023 3:35 PM EDT 05/17/2023 3:35 PM EDT [facility] External Provider LAB BLO OD ORDERABLES Final Result Performing Organization Address [facility] de Phone Number [facility] [address] [place] [phone] * Histamine, Plasma (05/17/2023 3:35 PM EDT) Histamine, Plasma <1.5 < OR = 1.8 ng/mL [facility] Comment:This test was perfor med using a kit that has not beencleared or approved by the FDA. The analytical performancecharacteristics of this test have been determined by [employer] [facility]. This testshould not be used for diagnosis without confirmation byother medically established means.THIS TEST WAS PERFORMED AT:[employer] [id number] [facility] [address]YRIGHNATASHA WILKINS MD,PHD,COURTNEY 05/17/2023 3:35 PM EDT 05/17/2023 3:35 PM EDT [facility] External Provider LAB BLO OD ORDERABLES Final Result Performing Organization Address [facility] Co de Phone Number [facility] [address] [place] [phone] * Calcium, Ionized (05/17/2023 3:35 PM EDT) Calcium, Ionized 5.0 4.7 - 5.5 mg/dL [facility] Comment:THIS TEST WAS PERFOR MED AT:[employer] [address] [address]LXUIBMICHAEL BUSTAMANTE MD 05/17/2023 3:35 PM EDT 05/17/2023 3:35 PM EDT [facility] External Provider LAB BLO OD ORDERABLES Final Result Performing Organization Address [facility] de Phone Number [facility] [address] [place] [phone] * TSH W/Reflex to FT4 (05/17/2023 3:35 PM EDT) TSH reflex Free T4 1.93 0.32 - 4.0 uIU/mL [facility] 05/17/2023 3:35 PM EDT 05/17/2023 3:35 PM EDT [facility] External Provider LAB BLO OD ORDERABLES Final Result Performing Organization Address [facility] Co de Phone Number [facility] [address] [place] [phone] * Vitamin D, 25-Hydroxy, Total, Immunoassay (05/17/2023 3:35 PM EDT) Vitamin D 25-OH Total 42.0 >30 ng/mL [facility] Comment:Health Based Referen ce Values*< 20 ng/mL Hyssjhhcl86-96 ng/mL Insufficient> 30 ng/mL Sufficient*Morales GARRIDO. N [...] 3:35 PM EDT 05/17/2023 3:35 PM EDT [facility] External Provider LAB BLO OD ORDERABLES Final Result Performing Organization Address City/[facility]/ZIP Co de Phone Number [facility] [address] [place] [phone] * Ferritin (05/17/2023 3:35 PM EDT) Ferritin 195 20 - 250 ng/mL [facility] 05/17/2023 3:35 PM EDT 05/17/2023 3:35 PM EDT [facility] External Provider LAB BLO OD ORDERABLES Final Result Performing Organization Address City/[facility]/ZIP Co de Phone Number [facility] [address] [place] [phone] * (ABNORMAL) Comprehensive Metabolic Panel (05/17/2023 3:35 PM EDT) Sodium 141 135 - 145 mmol/L [facility] Potassium 3.9 3.3 - 5.1 mmol/L [facility] Chloride 106 96 - 108 mmol/L [facility] Carbon Dioxide 24 22 - 29 mmol/L [facility] Anion Gap 15 12 - 20 [facility] Urea Nitrogen (BUN) 10 9 - 16 mg/dL [facility] Creatinine, Serum 0.83 0.5 - 1.4 mg/dL [facility] Estimated Glomerular Filt Rate >60 [facility] Comment:NOTE: For -Am erican individuals, multiply the result by 1.210.Chronic Kidney Disease: Estimated GFR < 60 mL/min/1.84n1Imunyj Kidney Disease: Estimated GFR < 15 mL/min/1.73m2 Glucose 96 60 - 115 mg/dL [facility] Calcium 9.1 8.4 - 10.2 mg/dL [facility] Bilirubin, Total 0.8 0.0 - 1.0 mg/dL [facility] Aspartate Amino Transferase 82(H) 5 - 37 U/L [facility] Alanine Aminotransferase 77(H) 0 - 40 U/L [facility] Total Protein 7.2 6.5 - 8.0 g/dL [facility] Albumin Level 4.3 3.5 - 5.0 g/dL [facility] Alkaline Phosphatase 84 39 - 117 U/L [facility] 05/17/2023 3:35 PM EDT 05/17/2023 3:35 PM EDT [facility] External Provider LAB BLO OD ORDERABLES Final Result [facility] [address] [place] [phone] * Vitamin B12/Folate, Serum Panel (05/17/2023 3:35 PM EDT) Vitamin B12 776 200 - 900 pg/mL [facility] Comment:NORMAL 200-900 PG/ML INDETERMINATE 160-199 PG/ML DEFICIENT < 160 PG/ML Folate >20.0 > or = 4.0 ng/mL [facility] Comment:Reference Values:> o r = 4.0 ng/mL< 4.0 ng/mL suggests folate deficiency Methotrexate, aminopterin and folinic acid(leucovorin) are chemotherapeutic agents whose molecularstructures are similar to folate; therefore, the Architectfolate assay cannot be used for patients using these drugs. 05/17/2023 3:35 PM EDT 05/17/2023 3:35 PM EDT [facility] External Provider LAB BLO OD ORDERABLES Final Result [facility] [address], [place] [phone] * (ABNORMAL) CBC auto differential (05/17/2023 3:35 PM EDT) White Blood Count 6.2 4.8 - 10.8 X10*3/uL [facility] Red Blood Count 3.97(L) 4.60 - 5.80 X10*6/uL [facility] Hemoglobin 13.9(L) 14.0 - 18.0 g/dl [facility] Hematocrit 40.7(L) 42.0 - 52.0 % [facility] Mean Corpuscular Volume 102.5(H) 80.0 - 98.0 fL [facility] Mean Corpuscular Hemoglobin 35.0(H) 27.0 - 33.0 pg [facility] Mean Corpuscular HGB Conc 34.2 31.0 - 36.0 g/dl [facility] Red Cell Distribution Width 14.8 11.0 - 16.0 % [facility] Platelet Count 181 160 - 400 X10*3/uL [facility] Mean Platelet Volume 10.5 9.4 - 12.4 fL [facility] Neutrophils Percent Auto 60.6 45 - 73 % [facility] Imm Gran Pct Auto 4.0(H) 0.0 - 0.4 % [facility] Lymphocytes Percent Auto 21.1 20 - 40 % [facility] Monocytes Percent Auto 8.7 2 - 11 % [facility] Eosinophils Percent Auto 5.0(H) 0 - 4 % [facility] Basophils Percent Auto 0.6 0 - 2 % [facility] NRBC Pct Auto 0.0 0.0 - 0.2 /100WBC [facility] Neutrophils Absolute Auto 3.8 2.0 - 8.3 x10*3/uL [facility] Imm Gran Abs Auto 0.25(H) 0.00 - 0.03 X10*3/uL [facility] Lymphocytes Absolute Auto 1.3 1.2 - 4.9 X10*3/uL [facility] Monocytes Absolute Auto 0.5 0.1 - 1.2 X10*3/uL [facility] Eosinophils Absolute Auto 0.3 0.0 - 0.4 X10*3/uL [facility] Basophils Absolute Auto 0.0 0.0 - 0.2 X10*3/uL [facility] NRBC Abs Auto 0.000 0.0 - 0.012 X10*3/uL [facility] 05/17/2023 3:35 PM EDT 05/17/2023 3:35 PM EDT [facility] External Provider LAB BLO OD ORDERABLES Final Result [facility] [address] [place] [phone] documented in this encounter Visit Diagnoses Not on filedocumented in this encounter Additional Health Concerns Assessment Noted Time PHQ-9 Depression Total Score: 17 023 1:12 PM EDT documented as of this encounter Care Teams Superintendent Drilling Relationship Specialty Start Date End Date Presley Montgomery MD [address] [place] [address] PCP - General Internal Medicine 04/05/20 documented as of this encounter
[2025-09-28 04:13] LABS: HIV Num 1 0.06 S/CO (0.00-0.99); ~HepC Num1 0.08 S/CO (0.00-0.79); ~Hepatitis C Antibody Nonreactive (Nonreactive)
== END 2025-09-27 14:09 | disposition home or self-care (01) ==
LOC: HO.HHCL 14:08
PROVIDERS: PCP Internal Medicine; Visit Provider Family Medicine
DX: F11.20 Opioid dependence, uncomplicated (principal); Z11.4 Encounter for screening for human immunodeficiency virus [HIV]; Z20.6 Contact with and (suspected) exposure to human immunodeficiency virus [HIV]; Z11.59 Encounter for screening for other viral diseases; Z20.5 Contact with and (suspected) exposure to viral hepatitis
CPT/HCPCS: 36415; 80076; 86803; 87389